=== PATIENT | female | born 1965 | race Caucasian/White ===

== ENCOUNTER → 2017-02-25 | Outpatient (CLI) | payer BC ==
--- NOTE | 2017-02-26 13:58 | Diagnostic Imaging Report ---
Bilateral screening mammogram 2D views with tomosynthesis. The current study was also evaluated with a Computer Aided Detection (CAD) system. INDICATION: Screening. No current complaints stated on the questionnaire. COMPARISON: 08/05/15. FINDINGS: The breasts are composed of scattered fibroglandular densities. Occasional benign-appearing calcifications are seen. Allowing for technique and positional differences, no suspicious change is seen. IMPRESSION: No significant change. ACR BI-RADS Category 2: Benign findings. Result letter will be mailed to the patient. Note: At least 10% of breast cancer is not imaged by mammography. Dictated on workstation # [id number]
== END ==
LOC: RAD 15:33
PROVIDERS: ATTEND Obstetrics & Gynecology
DX: Z12.31 Encounter for screening mammogram for malignant neoplasm of breast (principal)
CPT/HCPCS: 77067

== ENCOUNTER → 2018-03-21 | Outpatient (CLI) | payer BC ==
--- NOTE | 2018-03-22 12:50 | Diagnostic Imaging Report ---
INDICATION: Routine screening. COMPARISON: 02/25/2017 and 08/05/2015. TECHNIQUE: 2D and 3D bilateral screening mammography was performed with CAD. FINDINGS: Scattered fibroglandular densities are identified bilaterally. The parenchymal pattern is stable. No mass or malignant-appearing microcalcifications are seen. The axillae are unremarkable. IMPRESSION: No mammographic features suspicious for malignancy are identified. ACR BI-RADS Category 1: Negative. Result letter will be mailed to the patient. Note: At least 10% of breast cancer is not imaged by mammography. Dictated by: Dictated on workstation # [id number]
== END ==
LOC: RAD 15:35
PROVIDERS: ATTEND Obstetrics & Gynecology
DX: Z12.31 Encounter for screening mammogram for malignant neoplasm of breast (principal)
CPT/HCPCS: 77067

== ENCOUNTER 2018-11-25 20:38 | Inpatient (IN) | payer BC ==
[~2018-11-25] VITALS: Ht 157.5 cm; Wt 75.6 kg
[~2018-11-25 20:38] MED LIST: NITROGLYCERIN 0.4 MG SL TABS BTL 25'S SL ONE
[2018-11-25] MEDS ORDERED: ASPIRIN 81 MG CHEW (CHILDREN'S ASA) ONE ×2 (20:39→20:40)
--- NOTE | 2018-11-25 20:40 | NUR ---
pt here with " daughter". pt alert gcs 15. dr in ing pt same time. pt c/o chest pain off and on mostly with erertion x 2-3 weeks. pt denies chest pain during dr exam. pt appears quite anxious. pt denies dyspnea and no acute sighns of dyspnea noted. pt denies abd pain relates nausea earlier today none now. denies v/d. pt took 1 chewable asa and motrin automatic clipper here. pt relates 15 min automatic clipper here pain was " intense". pain is at left breast area. i applied tele shows sr 61 ? 1 degree block lungs equal cta bilaterally. abd soft nondistendd neg pain with palpation. pt instructed to call utilization management nurse light if pain comes back. done giselle pt at 2051.
--- NOTE | 2018-11-25 20:43 | NUR ---
someone doing ekg
--- OUTSIDE RECORDS SUMMARY | 2018-11-25 20:43 | XMS REPORT | Continuity of Care Document ---
Author Organization Unknown Address Unknown Phone Unavailable Allergies There is no data. Medications There is no data. Problems Date Dx Coded Attending Type Code Diagnosis Diagnosed By 08/15/2015 JIM ALLISON MD, Ot Z12.31 ENCNTR SCREEN MAMMOGRAM FOR MALIGNANT NE 02/24/2017 JIM ALLISON MD, Ot Z12.31 ENCNTR SCREEN MAMMOGRAM FOR MALIGNANT NE 03/10/2017 JIM ALLISON MD, Ot Z12.31 ENCNTR SCREEN MAMMOGRAM FOR MALIGNANT NE 03/15/2018 JIM ALLISON MD, Ot Z12.31 ENCNTR SCREEN MAMMOGRAM FOR MALIGNANT NE 03/15/2018 JIM ALLISON MD, Ot Z12.31 ENCNTR SCREEN MAMMOGRAM FOR MALIGNANT NE 03/16/2018 JIM ALLISON MD, Ot Z12.31 ENCNTR SCREEN MAMMOGRAM FOR MALIGNANT NE 03/16/2018 JIM ALLISON MD, Ot Z12.31 ENCNTR SCREEN MAMMOGRAM FOR MALIGNANT NE 03/21/2018 JIM ALLISON MD, Ot Z12.31 ENCNTR SCREEN MAMMOGRAM FOR MALIGNANT NE 03/21/2018 JIM ALLISON MD, Ot Z12.31 ENCNTR SCREEN MAMMOGRAM FOR MALIGNANT NE Procedures There is no data. Results There is no data. Encounters ACCT No. Visit Date/Time Discharge Status Pt. Type Provider Facility Loc./Unit Complaint [id number] 03/21/2018 15:35:00 03/21/2018 23:59:59 CLS Outpatient JIM ALLISON MD [facility] RAD SCREENING [id number] 02/25/2017 15:33:00 02/25/2017 23:59:59 CLS Outpatient JIM ALLISON MD [facility] RAD ROUTINE [id number] 08/05/2015 07:27:00 08/05/2015 23:59:59 CLS Outpatient ESTEFANY VAZQUEZ, JIM Reynaga [facility] RAD SCREENING
--- NOTE | 2018-11-25 20:46 | NUR ---
someone gave pt 3 baby asa per v/o dr. sandres also relates no nitro till pt has chest pain again.
--- NOTE | 2018-11-25 20:48 | NUR ---
labs to lab by me
--- NOTE | 2018-11-25 20:51 | ED Chest Pain ---
General Stated Complaint: CHEST PAIN Source: patient, family (daughter) Exam Limitations: no limitations History of Present Illness Date Seen by Provider: Nov 25, 2018 Time Seen by Provider: 20:38 Initial Comments The patient presents to the ER by private conveyance with her daughter chief complaint she's been experiencing some exertional chest pain under her left breast that gets better with rest for the pertinent past 2 weeks. The patient has been jogging about 2-3 times a week and 2 weeks ago she only got about a quarter of her usual distance when she started experiencing the pain and it would not go away until she had rested. Earlier today however she was just walking on her lunch break and that's when the pain started. Since noon she's been having the chest pain even while at rest and it comes and goes. She remarks it is a 8-9 out of 10 at worst and a bout of 5-6 of pain when she arrived. She says the pain was resolving as she was sitting in the bed during her workup. She has no history of coronary disease, hypertension, hypothyroidism, smoking, diabetes or any skin familial medical history. She says she only sees Dr. Braswell and does not see a primary care doctor. No cough shortness of breath nausea sweats pain radiating to her shoulder arm or jaw or syncope. No palpitations or flutters. Allergies and Home Medications Allergies Coded Allergies: sulfamethoxazole (Verified Allergy, Unknown, 11/25/18) trimethoprim (Verified Allergy, Unknown, 11/25/18) Patient Home Medication List Home Medication List Reviewed: Yes Review of Systems Review of Systems Constitutional: No chills, No diaphoresis EENTM: No Blurred Vision, No Double Vision Respiratory: Denies Cough, Denies Shortness of Air Cardiovascular: See HPI, Chest Pain; Denies Edema, Denies Irregular Heart Rate, Denies Lightheadedness, Denies Palpitations, Denies Syncope Gastrointestinal: Denies Abdomen Distended, Denies Abdominal Pain Genitourinary: Denies Burning, Denies Discharge Musculoskeletal: No back pain, No joint pain Skin: No pruritus, No rash Psychiatric/Neurological: Denies Headache, Denies Numbness Past Lszwoca-Nefvkl-Uenabz Hx Patient Social History Alcohol Use: Denies Use Recreational Drug Use: No Smoking Status: Never a Smoker 2nd Hand Smoke Exposure: No Recent Foreign Travel: No Contact w/Someone Who Travel: No Physical Exam Vital Signs Vital Signs - First Documented 11/25/18 20:40 Temp 99.1 Pulse 60 Resp 16 B/P (MAP) 148/85 (106) Pulse Ox 100 O2 Delivery Room Air Capillary Refill : Height, Weight, BMI Height: '" Weight: lbs. oz. kg; BMI Method: General Appearance: No Apparent Distress, WD/WN HEENT: PERRL/EOMI, Pharynx Normal, Moist Mucous Membranes Neck: Full Range of Motion, Normal Inspection Respiratory: Chest Non Tender, Lungs Clear, Normal Breath Sounds, No Accessory Muscle Use, No Respiratory Distress Cardiovascular: Regular Rate, Rhythm, No Edema Gastrointestinal: Normal Bowel Sounds, Non Tender, Soft Extremity: Normal Capillary Refill, Normal Inspection, No Pedal Edema Neurologic/Psychiatric: Alert, Oriented x3 Skin: Normal Color, Warm/Dry Progress/Results/Core Measures Results/Orders Lab Results Laboratory Tests Test 11/25/18 20:45 Range/Units White Blood Count 7.5 4.3-11.0 10^3/uL Red Blood Count 4.91 4.35-5.85 10^6/uL Hemoglobin 13.7 11.5-16.0 G/DL Hematocrit 41 35-52 % Mean Corpuscular Volume 84 80-99 FL Mean Corpuscular Hemoglobin 28 25-34 PG Mean Corpuscular Hemoglobin Concent 33 32-36 G/DL Red Cell Distribution Width 13.5 10.0-14.5 % Platelet Count 252 130-400 10^3/uL Mean Platelet Volume 10.9 H 7.4-10.4 FL Neutrophils (%) (Auto) 60 42-75 % Lymphocytes (%) (Auto) 29 12-44 % Monocytes (%) (Auto) 9 0-12 % Eosinophils (%) (Auto) 2 0-10 % Basophils (%) (Auto) 0 0-10 % Neutrophils # (Auto) 4.5 1.8-7.8 X 10^3 Lymphocytes # (Auto) 2.1 1.0-4.0 X 10^3 Monocytes # (Auto) 0.7 0.0-1.0 X 10^3 Eosinophils # (Auto) 0.2 0.0-0.3 10^3/uL Basophils # (Auto) 0.0 0.0-0.1 10^3/uL Prothrombin Time 12.6 12.2-14.7 SEC INR Comment 0.9 0.8-1.4 Activated Partial Thromboplast Time 24 24-35 SEC Sodium Level 143 135-145 MMOL/L Potassium Level 3.7 3.6-5.0 MMOL/L Chloride Level 104 98-107 MMOL/L Carbon Dioxide Level 27 21-32 MMOL/L Anion Gap 12 5-14 MMOL/L Blood Urea Nitrogen 13 7-18 MG/DL Creatinine 1.19 0.60-1.30 MG/DL Estimat Glomerular Filtration Rate 47 BUN/Creatinine Ratio 11 Glucose Level 108 H 70-105 MG/DL Calcium Level 9.9 8.5-10.1 MG/DL Corrected Calcium 9.7 8.5-10.1 MG/DL Magnesium Level 2.3 1.8-2.4 MG/DL Total Bilirubin 0.4 0.1-1.0 MG/DL Aspartate Amino Transf (AST/SGOT) 20 5-34 U/L Alanine Aminotransferase (ALT/SGPT) 12 0-55 U/L Alkaline Phosphatase 84 40-136 U/L Myoglobin 50.1 10.0-92.0 NG/ML Troponin I 0.144 H <0.028 NG/ML Total Protein 7.0 6.4-8.2 GM/DL Albumin 4.3 3.2-4.5 GM/DL Lipase 33 8-78 U/L My Orders Orders - IESHA DEUTSCH Continuous Ekg Monitoring (11/25/18 20:39) Ekg Tracing (11/25/18 20:39) Nitroglycerin 0.4 Mg Btl 25's (Nitrostat (11/25/18 20:38) Aspirin Chewable Tablet (Baby Aspirin Ch (11/25/18 20:39) Aspirin Chewable Tablet (Baby Aspirin Ch (11/25/18 20:40) Cbc With Automated Diff (11/25/18 20:51) Magnesium (11/25/18 20:51) Chest 1 View, Ap/Pa Only (11/25/18 20:51) Cardiac Profile 1 (11/25/18 20:51) Comprehensive Metabolic Panel (11/25/18 20:51) Myoglobin Serum (11/25/18 20:51) Protime With Inr (11/25/18 20:51) Partial Thromboplastin Time (11/25/18 20:51) O2 (11/25/18 20:51) Monitor-Rhythm Ecg Trace Only (11/25/18 20:51) Lipid Panel (11/26/18 06:00) Ed Iv/Invasive Line Start (11/25/18 20:51) Lipase (11/25/18 20:51) Nitroglycerin 0.4 Mg Btl 25's (Nitrostat (11/25/18 21:00) Aspirin Chewable Tablet (Baby Aspirin Ch (11/25/18 21:00) Ekg Tracing (11/25/18 21:15) Enoxaparin Injection (Lovenox Injection) (11/25/18 21:45) Clopidogrel Tablet (Plavix Tablet) (11/25/18 21:45) Medications Given in ED Current Medications Medications Dose Ordered Sig/Babak Route Start Time Stop Time Status Last Admin Dose Admin Aspirin 234 mg ONCE ONCE PO 11/25/18 21:00 11/25/18 21:01 DC 11/25/18 20:46 234 MG Vital Signs/I&O 11/25/18 20:40 Temp 99.1 Pulse 60 Resp 16 B/P (MAP) 148/85 (106) Pulse Ox 100 O2 Delivery Room Air Progress Progress Note : Time: 21:00 Progress Note Heart score 3 points if the troponin is negative. Her story is moderately suspicious and her lack of risk factors are not reassuring since she does not see a primary care doctor routinely. Initial ECG Impression Date: Nov 25, 2018 Initial ECG Impression Time: 20:40 Initial ECG Rate: 58 Initial ECG Rhythm: Normal Sinus Initial ECG Intervals: Normal Initial ECG Impression: Normal, Nonspecific Changes Initial ECG Comparisson: No Previous ECG Available Comment Patient has some mild half a block elevation of the ST segment in the anterior lead V1, V2 and V3 but no clinically significant ST elevation or depression. EKG : EKG Time: 21:20 Rate: 54 Rhythm: Normal Sinus Intervals: Normal ECG Comparisson: Unchanged ECG Impression: Normal Comment About one half block elevation in the ST segment in V1 but no longer care or V3. No acute ST elevation WA. Normal sinus rhythm. Diagnostic Imaging Diagonstic Imaging: Xray Plain Films/CT/US/NM/MRI: chest (1v) Comments NAME: JUNAID COFFEY [facility] REC#: [id number] PT STATUS: REG ER : 1965 PHYSICIAN: IESHA DEUTSCH MD ADMIT DATE: 11/25/18/ER Draft Date of Exam:11/25/18 CHEST 1 VIEW, AP/PA ONLY EXAMINATION: Chest radiograph, portable AP view. DATE: November 25, 2018 at 2131 hours. INDICATION: 53-year-old female, chest pain. COMPARISON: None. FINDINGS: Heart size and mediastinal contours are unremarkable. There is no identified pneumothorax. There is no large pleural effusion. There is no identified focal airspace consolidation. IMPRESSION: No identified acute cardiopulmonary abnormality. Dictated on workstation # [id number] Dict: 11/25/182140 Trans: 11/25/182143 [facility] [id number] Interpreted by: GABE COMBS MD Electronically signed by: Reviewed: Reviewed by Me Departure Communication (Admissions) Time/Spoke to Admitting Phy: 21:45 Discussed the case lab EKG with Dr. Sy and she agrees to admit the patient. Time/Spoke to Consulting Phy: 21:30 Discussed the case with Dr. Joseph and he agrees to take the patient on consult and would like aspirin 25 mg, Plavix 300 mg, Lovenox weight-based dosing now and hold the morning. Nothing by mouth at midnight and plan to possibly catheter in the morning. Impression Primary Impression: NSTEMI (non-ST elevated myocardial infarction) Disposition: ADMITTED INPATIENT Condition: Stable Admissions Decision to Admit Reason: Admit from ER (General) Decision to Admit/Date: Nov 25, 2018 Time/Decision to Admit Time: 21:29 Departure-Patient Inst. Referrals: NO,LOCAL PHYSICIAN (PCP/Family) Primary Care Physician IESHA DEUTSCH Nov 25, 2018 20:51
[2018-11-25 21:00] LABS: BASOPHILS % (AUTO) 0 % (0-10); EOSINOPHILS # (AUTO) 0.2 10^3/uL (0.0-0.3); EOSINOPHILS % (AUTO) 2 % (0-10); HEMATOCRIT 41 % (35-52); HEMOGLOBIN 13.7 G/DL (11.5-16.0); LYMPHOCYTES # (AUTO) 2.1 X 10^3 (1.0-4.0); LYMPHOCYTES % (AUTO) 29 % (12-44); MEAN CORPUSCULAR HEMOGLOBIN 28 PG (25-34); MEAN CORPUSCULAR HGB CONC 33 G/DL (32-36); MEAN CORPUSCULAR VOLUME 84 FL (80-99); MEAN PLATELET VOLUME 10.9 FL (7.4-10.4); MONOCYTES # (AUTO) 0.7 X 10^3 (0.0-1.0); MONOCYTES % (AUTO) 9 % (0-12); NEUTROPHILS # (AUTO) 4.5 X 10^3 (1.8-7.8); NEUTROPHILS % (AUTO) 60 % (42-75); PLATELET COUNT 252 10^3/uL (130-400); RED CELL DISTRIBUTION WIDTH 13.5 % (10.0-14.5); WHITE BLOOD COUNT 7.5 10^3/uL (4.3-11.0)
[2018-11-25] MEDS ORDERED: ASPIRIN 81 MG CHEW (CHILDREN'S ASA) PO ONE (21:00)
[2018-11-25] MEDS ORDERED: NITROGLYCERIN 0.4 MG SL TABS BTL 25'S SL PRN ×2 (21:00→23:00)
[2018-11-25 21:05] LABS: INR 0.9 (0.8-1.4); PROTHROMBIN TIME PATIENT 12.6 SEC (12.2-14.7)
[2018-11-25 21:12] LABS: ALBUMIN 4.3 GM/DL (3.2-4.5); BILIRUBIN,TOTAL 0.4 MG/DL (0.1-1.0); CALCIUM 9.9 MG/DL (8.5-10.1); CREATININE SERUM 1.19 MG/DL (0.60-1.30); MAGNESIUM 2.3 MG/DL (1.8-2.4); POTASSIUM 3.7 MMOL/L (3.6-5.0)
--- NOTE | 2018-11-25 21:20 | NUR ---
pt remains alert gcs 15. daughter remains in the room. pt appears less anxious. pt denies chest and abd pain. denies nausea and no v/d noted in er visit thus far. denies dyspnea and no acute sighns of dyspnea noted. pt told again call if if pain comes back. 2nd ekg in progress. tele shows sr 61. bp machibe is 123/71 ausc hr 60 reg ausc resp 16 normal recheck temp 99.3 p ox r/a is 97.
--- NOTE | 2018-11-25 21:44 | Diagnostic Imaging Report ---
EXAMINATION: Chest radiograph, portable AP view. DATE: November 25, 2018 at 2131 hours. INDICATION: 53-year-old female, chest pain. COMPARISON: None. FINDINGS: Heart size and mediastinal contours are unremarkable. There is no identified pneumothorax. There is no large pleural effusion. There is no identified focal airspace consolidation. IMPRESSION: No identified acute cardiopulmonary abnormality. Dictated by: Dictated on workstation # [id number]
[2018-11-25] MEDS ORDERED: CLOPIDOGREL 300 MG (PLAVIX) TABLET PO ONE (21:45)
[2018-11-25] MEDS ORDERED: ENOXAPARIN 80 MG/0.8 ML (LOVENOX) SYR SC ONE (21:45)
--- NOTE | 2018-11-25 21:45 | NUR ---
pt remains alert gcs 15. daughter remains in the room. dr in room talking withpt. pt denies chest pain and dyspnea and no acute sighns of dyspnea noted. tele shows sr 64.bp machine is 162/86 ausc hr 64 reg ausc resp 20 normal recheck temp 99.5 p ox r/a is 98.
--- NOTE | 2018-11-25 22:00 | NUR ---
i just called report to admit nurse eufemia. she will call when she is ready for the pt.
--- NOTE | 2018-11-25 22:14 | NUR ---
admit nurse called and ready for pt. i am taking pt to admit room now by cart. tele continues to floor. family with.
[2018-11-25 22:27] VITALS: BP 123/69
[2018-11-25 22:30] VITALS: BP 125/70
--- NOTE | 2018-11-25 22:30 | NUR ---
Pt c/o chest pressure of 1/10. Pt refused nitro and morphine.
[2018-11-25 22:40] VITALS: BP 129/69
[2018-11-25 22:45] VITALS: BP 104/57
[2018-11-25 23:00] VITALS: BP 96/56
[2018-11-25] MEDS ORDERED: ONDANSETRON 4 MG/2 ML (SDV) Z0FRAN IV PRN (23:00)
[2018-11-25] MEDS ORDERED: CATHETER FLUSH 10 ML SYR IV PRN (23:00)
[2018-11-25 23:15] VITALS: BP 102/69
[2018-11-26] VITALS (21 sets, daily range): BP systolic 90–118; BP diastolic 43–71
[2018-11-26 04:21] LABS: BASOPHILS % (AUTO) 0 % (0-10); EOSINOPHILS # (AUTO) 0.2 10^3/uL (0.0-0.3); EOSINOPHILS % (AUTO) 4 % (0-10); HEMATOCRIT 40 % (35-52); HEMOGLOBIN 13.2 G/DL (11.5-16.0); LYMPHOCYTES # (AUTO) 1.9 X 10^3 (1.0-4.0); LYMPHOCYTES % (AUTO) 36 % (12-44); MEAN CORPUSCULAR HEMOGLOBIN 28 PG (25-34); MEAN CORPUSCULAR HGB CONC 33 G/DL (32-36); MEAN CORPUSCULAR VOLUME 84 FL (80-99); MEAN PLATELET VOLUME 10.2 FL (7.4-10.4); MONOCYTES # (AUTO) 0.4 X 10^3 (0.0-1.0); MONOCYTES % (AUTO) 8 % (0-12); NEUTROPHILS # (AUTO) 2.8 X 10^3 (1.8-7.8); NEUTROPHILS % (AUTO) 52 % (42-75); PLATELET COUNT 224 10^3/uL (130-400); RED CELL DISTRIBUTION WIDTH 13.5 % (10.0-14.5); WHITE BLOOD COUNT 5.4 10^3/uL (4.3-11.0)
[2018-11-26 04:38] LABS: ALANINE AMINOTRANSFERASE 12 U/L (0-55); ALBUMIN 3.9 GM/DL (3.2-4.5); ALKALINE PHOSPHATASE 75 U/L (40-136); BILIRUBIN,TOTAL 0.4 MG/DL (0.1-1.0); BUN/CREATININE RATIO 13; CALCIUM 9.5 MG/DL (8.5-10.1); CARBON DIOXIDE 25 MMOL/L (21-32); CHLORIDE 107 MMOL/L (98-107); CHOLESTEROL 169 MG/DL (< 200); GFR ESTIMATED > 60; GLUCOSE 85 MG/DL (70-105); HDL CHOLESTEROL 65 MG/DL (40-60); POTASSIUM 3.8 MMOL/L (3.6-5.0); SODIUM 143 MMOL/L (135-145); TOTAL PROTEIN 6.3 GM/DL (6.4-8.2); TRIGLYCERIDES 63 MG/DL (<150); VLDL CHOLESTEROL 13 MG/DL (5-40)
[2018-11-26] MEDS: CATHETER FLUSH 10 ML SYR IV SCH ×3 (07:22→22:20)
[2018-11-26] MEDS ORDERED: NS IV 1000 ML 1,000 ML ONE ×2 (08:59→11:18)
[2018-11-26] MEDS ORDERED: CLOPIDOGREL 75 MG (PLAVIX) TABLET PO SCH (09:00)
[2018-11-26] MEDS ORDERED: ASPIRIN E.C. 81 MG (ECOTRIN) TAB PO SCH (09:00)
[2018-11-26] MEDS ORDERED: lisINopril 5 MG (PRINIVIL) TABLET PO SCH (09:00)
--- NOTE | 2018-11-26 09:10 | Cardiac Procedure Note-CS/ASA ---
Pre-Procedure Note Pre-Op Procedure Note H&P Reviewed The H&P was reviewed, patient examined and no changes noted. Date H&P Reviewed: Nov 26, 2018 Time H&P Reviewed: 09:10 Conscious Sedation Pre-Proced Time 09:10 ASA Score 3 For ASA 3 and 4: Consider anesthesia and medical clearance. Also, for patients with a history of failed moderate sedation consider anesthesia. Airway Lungs Heart ASA score ASA 1: a normal healthy patient ASA 2: a patient with a mild systemic disease (mid diabetes, controlled hypertension, obesity x ASA 3: a patient with a severe systemic disease that limits activity (angina, COPD, prior Myocardial infarction) ASA 4: a patient with an incapacitating disease that is a constant threat to life (CHF, renal failure) ASA 5: a moribund patient not expected to survive 24 hrs. (ruptured aneurysm) ASA 6: a declared brain- patient whose organs are being harvested. For emergent operations, add the letter E after the classification Mallampati Classification Grade 3 Sedation Plan Analgesia, Amnesia, Plan communicated to team members, Discussed options with patient/fam, Discussed risks with patient/fam The patient is an appropriate candidate to undergo the planned procedure, sedation, and anesthesia. The patient immediately re-assessed prior to indication. KATRIN CARTER MD Nov 26, 2018 09:10
--- NOTE | 2018-11-26 09:10 | Consultation-Cardiology ---
HPI-Cardiology Cardiology Consultation Date of Consultation 11/26/18 Date of Admission Time Seen by Provider: 09:05 Indication: chest pain HPI 53 years old lady with no significant past history, has been trying to exercise to lose weight. Started to experience chest pain with exertion over the past 2 weeks, reporting worsening chest pain with exertion that her exercise ability b ecame worse, continue to deteriorate until yesterday when she had significant chest pain with exertion and then she progressed to having chest pain at rest, came into the emergency room, reporting improvement in her chest pain. She was noted to have troponin elevation. Overnight did not have any further episode of chest pain, no shortness of breath, no palpitation, no syncope or near syncopal episodes. No claudications. Home Medications & Allergies Allergies: Coded Allergies: sulfamethoxazole (Verified Allergy, Unknown, 11/25/18) trimethoprim (Verified Allergy, Unknown, 11/25/18) Home Medication List Reviewed: Yes YOB-Pdzxcn-Bkhibr Hx Patient Social History Marital Status: Employed/Student: employed Alcohol Use: Denies Use Recreational Drug Use: No Smoking Status: Never a Smoker 2nd Hand Smoke Exposure: No Recent Foreign Travel: No Recent Infectious Disease Expo: No Past Medical History menopause Family Medical History Family Medical Hx uncle has history of heart disease Review of Systems-General Review of Systems Constitutional: see HPI; No chills, No diaphoresis EENTM: see HPI, no symptoms reported Respiratory: see HPI; No cough, No dyspnea on exertion, No hemoptysis, No orthopnea, No phlegm, No short of breath, No stridor, No wheezing, No other Cardiovascular: see HPI, chest pain; No edema, No Hx of Intervention, No palpi tations, No syncope, No vascular heart diseas, No other Gastrointestinal: no symptoms reported, see HPI Genitourinary: no symptoms reported, see HPI Musculoskeletal: see HPI; No back pain, No joint pain Skin: see HPI; No pruritus, No rash Psychiatric/Neurological: See HPI; Denies Headache, Denies Numbness Reviewed Test Results Reviewed Test Results Lab Laboratory Tests Test 11/25/18 20:45 11/26/18 04:11 Range/Units White Blood Count 7.5 5.4 4.3-11.0 10^3/uL Red Blood Count 4.91 4.69 4.35-5.85 10^6/uL Hemoglobin 13.7 13.2 11.5-16.0 G/DL Hematocrit 41 40 35-52 % Mean Corpuscular Volume 84 84 80-99 FL Mean Corpuscular Hemoglobin 28 28 25-34 PG Mean Corpuscular Hemoglobin Concent 33 33 32-36 G/DL Red Cell Distribution Width 13.5 13.5 10.0-14.5 % Platelet Count 252 224 130-400 10^3/uL Mean Platelet Volume 10.9 H 10.2 7.4-10.4 FL Neutrophils (%) (Auto) 60 52 42-75 % Lymphocytes (%) (Auto) 29 36 12-44 % Monocytes (%) (Auto) 9 8 0-12 % Eosinophils (%) (Auto) 2 4 0-10 % Basophils (%) (Auto) 0 0 0-10 % Neutrophils # (Auto) 4.5 2.8 1.8-7.8 X 10^3 Lymphocytes # (Auto) 2.1 1.9 1.0-4.0 X 10^3 Monocytes # (Auto) 0.7 0.4 0.0-1.0 X 10^3 Eosinophils # (Auto) 0.2 0.2 0.0-0.3 10^3/uL Basophils # (Auto) 0.0 0.0 0.0-0.1 10^3/uL Prothrombin Time 12.6 12.2-14.7 SEC INR Comment 0.9 0.8-1.4 Activated Partial Thromboplast Time 24 24-35 SEC Sodium Level 143 143 135-145 MMOL/L Potassium Level 3.7 3.8 3.6-5.0 MMOL/L Chloride Level 104 107 98-107 MMOL/L Carbon Dioxide Level 27 25 21-32 MMOL/L Anion Gap 12 11 5-14 MMOL/L Blood Urea Nitrogen 13 12 7-18 MG/DL Creatinine 1.19 0.90 0.60-1.30 MG/DL Estimat Glomerular Filtration Rate 47 > 60 BUN/Creatinine Ratio 11 13 Glucose Level 108 H 85 70-105 MG/DL Calcium Level 9.9 9.5 8.5-10.1 MG/DL Corrected Calcium 9.7 9.6 8.5-10.1 MG/DL Magnesium Level 2.3 1.8-2.4 MG/DL Total Bilirubin 0.4 0.4 0.1-1.0 MG/DL Aspartate Amino Transf (AST/SGOT) 20 22 5-34 U/L Alanine Aminotransferase (ALT/SGPT) 12 12 0-55 U/L Alkaline Phosphatase 84 75 40-136 U/L Myoglobin 50.1 10.0-92.0 NG/ML Troponin I 0.144 H 0.925 *H <0.028 NG/ML Total Protein 7.0 6.3 L 6.4-8.2 GM/DL Albumin 4.3 3.9 3.2-4.5 GM/DL Lipase 33 8-78 U/L Triglycerides Level 63 <150 MG/DL Cholesterol Level 169 < 200 MG/DL LDL Cholesterol Direct 100 1-129 MG/DL VLDL Cholesterol 13 5-40 MG/DL HDL Cholesterol 65 H 40-60 MG/DL Physical Exam Physical Exam Vital Signs Vital Signs - First Documented 11/25/18 11/25/18 20:40 22:40 Temp 99.1 Pulse 60 Resp 16 B/P (MAP) 148/85 (106) Pulse Ox 100 O2 Delivery Room Air O2 Flow Rate 0.00 Capillary Refill : Less Than 3 Seconds Height, Weight, BMI Height: 5'2.00" Weight: 160lbs. 3.0oz. 72.027061db; 29.3 BMI Method:Stated General Appearance: No Apparent Distress, WD/WN HEENT: PERRL/EOMI, Pharynx Normal, Moist Mucous Membranes Neck: Full Range of Motion, Normal Inspection Respiratory: Chest Non Tender, Lungs Clear, Normal Breath Sounds, No Accessory Muscle Use, No Respiratory Distress Cardiovascular: Regular Rate, Rhythm, No Edema Gastrointestinal: Normal Bowel Sounds, Non Tender, Soft Extremity: Normal Capillary Refill, Normal Inspection, No Pedal Edema Neurologic/Psychiatric: Alert, Oriented x3 Skin: Normal Color, Warm/Dry A/P-Cardiology Admission Diagnosis Non-ST elevation of cardiac infarction Coronary artery disease Sinus node dysfunction Chest pain Assessment/Plan Non-ST elevation myocardial infarction, patient is chest pain-free at this time, continue to have increase in troponin, discussed the management plan recommended cardiac catheterization. Coronary artery disease, planning to proceed with cardiac catheterization Sinus node dysfunction, sinus bradycardia, asymptomatic. Monitor. Cannot tolerate beta blockers. Menopause, maintained on hormone replacement therapy. Family history of heart disease Clinical Quality Measures DVT/VTE Risk/Contraindication: Risk Factor Score Per Nursin RFS Level Per Nursing on Admit: 4+=Very High KATRIN CARTER MD Nov 26, 2018 09:10
[2018-11-26] MEDS ORDERED: HEParin (CATH LAB) 2,000 ML IV ONE (09:30)
[2018-11-26] MEDS ORDERED: LIDOCAINE 1% INJ 20 ML 20 ML VIAL ONE (09:30)
[2018-11-26] MEDS ORDERED: MIDAZOLAM 5 MG/5 ML (VERSED) VIAL ONE (09:54)
[2018-11-26] MEDS ORDERED: fentaNYL INJECTION 100 MCG/2 ML AMP ONE (09:54)
--- NOTE | 2018-11-26 10:30 | Short Stay Summary-Hospitalist ---
History of Present Illness HPI/Chief Complaint Pt is a 53yo female on hormone replacement therapy who presented to the ER for exertional chest pain. She states her symptoms started 2-3 weeks ago. She normally jogs 2-3 times a week and she is not able to maintain a normal distance chest pain. She's also developed dyspnea on exertion. Yesterday she developed chest pain that was severe at rest. She denies a history of previous symptoms. It improved in route to the ER but without any medications. She was found to have a mildly elevated troponin and was admitted for an NSTEMI. Source: patient Date Seen 11/26/18 Time Seen by a Provider: 10:25 Attending Physician Verona Sy MD PCP No,Local Physician Referring Physician Date of Admission Nov 25, 2018 at 9:25 pm Home Medications & Allergies Home Medications Reviewed patient Home Medication Reconciliation performed by pharmacy medication reconciliations facilities operations technician and/or nursing. Patients Allergies have been reviewed. Allergies Allergies Coded Allergies shellfish derived (Unverified Allergy, Severe, Anaphylaxis, 11/26/18) sulfamethoxazole (Verified Allergy, Unknown, 11/25/18) trimethoprim (Verified Allergy, Unknown, 11/25/18) Uncoded Allergies iv contrast ( Allergy, Severe, anaphylaxis, 11/26/18) anaphylaxis, angioedema Past Vvascys-Hzvzdp-Lbjklw Hx Past Med/Social Hx: Reviewed Nursing Past Med/Soc Hx Patient Social History Marrital Status: Employed/Student: employed Alcohol Use: Denies Use Recreational Drug Use: No Smoking Status: Never a Smoker 2nd Hand Smoke Exposure: No Recent Foreign Travel: No Contact w/other who traveled: No Recent Infectious Disease Expo: No Past Medical History : No Menopausal (on hormone replacemnt therapy) Family History Reviewed Nursing Family Hx mom- VTE Brother- RA Review of Systems Constitutional: no symptoms reported Respiratory: dyspnea on exertion, short of breath Cardiovascular: chest pain; No edema, No Hx of Intervention; palpitations; No syncope Gastrointestinal: no symptoms reported, nausea Genitourinary: no symptoms reported Musculoskeletal: no symptoms reported Skin: no symptoms reported Psychiatric/Neurological: No Symptoms Reported Physical Exam Physical Exam Vital Signs Vital Signs - First Documented 11/25/18 11/25/18 11/26/18 20:40 22:40 12:00 Temp 99.1 Pulse 60 Resp 16 B/P (MAP) 148/85 (106) Pulse Ox 100 O2 Delivery Room Air O2 Flow Rate 0.00 FiO2 60 Capillary Refill : Less Than 3 Seconds Height, Weight, BMI Height: 5'2.00" Weight: 160lbs. 3.0oz. 72.747869vu; 29.3 BMI Method:Stated General Appearance: No Apparent Distress, WD/WN HEENT: PERRL/EOMI, Moist Mucous Membranes; No Scleral Icterus (L), No Scleral Icterus (R) Neck: Normal Inspection, Supple; No Thyromegaly Respiratory: Lungs Clear, No Accessory Muscle Use, No Respiratory Distress Cardiovascular: Regular Rate, Rhythm, No Edema, No Murmur Gastrointestinal: Normal Bowel Sounds, Non Tender, Soft Extremity: Normal Capillary Refill, Normal Inspection, No Calf Tenderness, No Pedal Edema Neurologic/Psychiatric: Alert, Oriented x3, Normal Mood/Affect; No Aphasia, No Facial Droop Skin: Normal Color, Warm/Dry Results Results/Procedures Labs Laboratory Tests 11/25/18 20:45 11/26/18 04:11 11/27/18 03:36 Patient resulted labs reviewed. Imaging: Reviewed Imaging Report Short Stay Diagnosis Discharge Diagnosis-Short Stay Admission Diagnosis NSTEMI Final Discharge Diagnosis NSTEMI Conclusion Plan NSTEMI troponin elevated and trended up this AM Cardiology consulted Received ASA, Plavix in ER Cardiac Cath today Clinical Quality Measures DVT/VTE Risk/Contraindication: Risk Factor Score Per Nursin RFS Level Per Nursing on Admit: 4+=Very High VERONA SY MD Nov 26, 2018 10:30 am
[2018-11-26] MEDS ORDERED: EPTIFIBATIDE BOLUS 20 ML IV ONE (10:47)
[2018-11-26] MEDS ORDERED: HEParin 1000 UNIT/ML (10ML VIAL) FOR BOLUS ONE (10:47)
[2018-11-26] MEDS ORDERED: niCARdipine 25 MG/10 ML (CARDENE) AMP IV ONE (10:48)
[2018-11-26] MEDS ORDERED: NS (IVPB) 0 ML ONE (10:48)
[2018-11-26] MEDS ORDERED: NITRO DRIP 25000 MCG/D5W 250 ML IV ONE (10:48)
[2018-11-26] MEDS ORDERED: diphenhydrAMINE 50 MG/ML INJ (BENADRYL) ONE (11:13)
[2018-11-26] MEDS ORDERED: methylPREDNISolone 125 MG (Solu-MEDROL) VIAL ONE (11:14)
[2018-11-26] MEDS ORDERED: DOPamine DRIP 250 ML IV ONE (11:15)
[2018-11-26] MEDS ORDERED: EPINEPHrine 0.1 MG/ML 10 ML (HOSPIRA) SYR ONE (11:27)
[2018-11-26] MEDS ORDERED: FAMOTIDINE 20MG/2ML IV (PEPCID) ONE (11:33)
[2018-11-26] MEDS ORDERED: CLOPIDOGREL 300 MG (PLAVIX) TABLET PO ONE ×2 (11:45→12:39)
[2018-11-26] MEDS ORDERED: EPINEPHrine 1 MG INJECTION 2 MG in NS (IVPB) 248 ML IV SCH (11:45)
[2018-11-26] MEDS ORDERED: diphenhydrAMINE 50 MG/ML INJ (BENADRYL) IVP PRN (11:45)
[2018-11-26] MEDS ORDERED: PATIENT MAY USE OWN MEDS, ALL PO SCH (11:45)
[2018-11-26] MEDS ORDERED: ASPIRIN 325 MG (5 GR) TABLET ONE ×2 (11:45→12:38)
--- NOTE | 2018-11-26 12:05 | NUR ---
Pt to room via bed from phlebotomist lab assistant. Dr. Joseph and Dr. cordoba at bedside. Staff preparing to intubate pt. Timeline note below. 1206-pt bagged by phlebotomist lab assistant and anesthesia. 1207-2 mg versed given by anesthesia. 1208-20 mg Etomidate given by anesthesia 1205- 50 mg succinylcholine given by anesthesia 1210- 1st intubation attempt failed, pt bagged. 1212- Intubation attempt successful with 6.0 ETT and color change on C02 detector. 1215-OG tube placed and placement verified, pt hooked up to LIWS. 1223- pt waking up, 2 mg versed given at this time by phlebotomist lab assistant RN.
--- NOTE | 2018-11-26 12:06 | History & Physical-Hospitalist ---
History of Present Illness HPI/Chief Complaint Pt is a 53yo female on hormone replacement therapy who presented to the ER for exertional chest pain. She states her symptoms started 2-3 weeks ago. She normally jogs 2-3 times a week and she is not able to maintain a normal distance chest pain. She's also developed dyspnea on exertion. Yesterday she developed chest pain that was severe at rest. She denies a history of previous symptoms. It improved in route to the ER but without any medications. She was found to have a mildly elevated troponin and was admitted for an NSTEMI. Date Seen 11/26/18 Time Seen by a Provider: 11:59 Attending Physician Verona Sy MD PCP No,Local Physician Referring Physician Date of Admission Nov 25, 2018 at 9:25 pm Home Medications & Allergies Home Medications Reviewed patient Home Medication Reconciliation performed by pharmacy medication reconciliations infectious waste technician and/or nursing. Patients Allergies have been reviewed. Allergies Allergies Coded Allergies shellfish derived (Unverified Allergy, Severe, Anaphylaxis, 11/26/18) sulfamethoxazole (Verified Allergy, Unknown, 11/25/18) trimethoprim (Verified Allergy, Unknown, 11/25/18) Uncoded Allergies iv contrast ( Allergy, Severe, 11/26/18) anaphylaxis, angioedema Past Srxvpry-Dfgzlh-Gfujzq Hx Past Med/Social Hx: Reviewed Nursing Past Med/Soc Hx Patient Social History Marrital Status: Employed/Student: employed Alcohol Use: Denies Use Recreational Drug Use: No Smoking Status: Never a Smoker 2nd Hand Smoke Exposure: No Recent Foreign Travel: No Contact w/other who traveled: No Recent Infectious Disease Expo: No Past Medical History : No Menopausal (on hormone replacemnt therapy) Family History Reviewed Nursing Family Hx mom- VTE Brother- RA Review of Systems Constitutional: No chills, No fever EENTM: No blurred vision, No double vision, No nose congestion, No throat pain Respiratory: dyspnea on exertion, short of breath Cardiovascular: chest pain; No edema, No Hx of Intervention, No palpitations, No vascular heart diseas Gastrointestinal: No abdominal pain, No constipation, No diarrhea, No nausea, No vomiting Genitourinary: No dysuria, No frequency Musculoskeletal: No joint pain, No muscle pain Skin: No lesions, No rash Psychiatric/Neurological: Denies Headache, Denies Numbness, Denies Tingling Physical Exam Physical Exam Vital Signs Vital Signs - First Documented 11/25/18 11/25/18 20:40 22:40 Temp 99.1 Pulse 60 Resp 16 B/P (MAP) 148/85 (106) Pulse Ox 100 O2 Delivery Room Air O2 Flow Rate 0.00 Capillary Refill : Less Than 3 Seconds Height, Weight, BMI Height: 5'2.00" Weight: 160lbs. 3.0oz. 72.988870vd; 29.3 BMI Method:Stated General Appearance: No Apparent Distress, WD/WN Eyes: Right Eye Normal Inspection, Right Eye PERRL HEENT: PERRL/EOMI, Normal ENT Inspection, Moist Mucous Membranes; No Scleral Icterus (L), No Scleral Icterus (R) Neck: Normal Inspection, Non Tender Respiratory: Lungs Clear, No Respiratory Distress Cardiovascular: Regular Rate, Rhythm, No Edema, No JVD, No Murmur, Normal Peripheral Pulses Gastrointestinal: Normal Bowel Sounds, No Organomegaly, No Pulsatile Mass, Non Tender, Soft Back: Normal Inspection, No CVA Tenderness Extremity: Normal Inspection, Non Tender, No Calf Tenderness, No Pedal Edema Neurologic/Psychiatric: Alert, Oriented x3, Normal Mood/Affect; No Aphasia, No Facial Droop Skin: Normal Color, Warm/Dry Lymphatic: No Adenopathy Results Results/Procedures Labs Laboratory Tests 11/25/18 20:45 11/26/18 04:11 Patient resulted labs reviewed. Imaging: Reviewed Imaging Report Assessment/Plan Admission Diagnosis NSTEMI Admission Status: Inpatient Order (span 2 midnights) Reason for Inpatient Admission: See below Assessment and Plan NSTEMI troponin elevated and trended up this AM Cardiology consulted Received ASA, Plavix in ER Cardiac Cath revealed RCA lesion with stent deployment Anaphylactic Shock Had undisclosed shellfish allergy Reacted to contrast in laborer tin can Became hypotensive with angioedema Received Epi and Epi gtt started Dopamine gtt Steroids given, Benadryl ordered, famotidine ordered Acute Respiratory Failure Pulm consulted, appreciate recs Plan to intubate due to angioedema by Anesthesia Diagnosis/Problems Diagnosis/Problems (1) NSTEMI (non-ST elevated myocardial infarction) Status: Acute (2) Anaphylactic shock as adv eff correct medicin substanc proper administ Qualifiers: Encounter type: initial encounter Qualified Codes: T88.6XXA - Anaphylactic reaction due to adverse effect of correct drug or medicament properly administered, initial encounter (3) Acute respiratory failure Status: Acute Clinical Quality Measures DVT/VTE Risk/Contraindication: Risk Factor Score Per Nursin RFS Level Per Nursing on Admit: 4+=Very High VERONA SY MD Nov 26, 2018 12:06 pm
[2018-11-26] MEDS ORDERED: PROPOFOL DRIP (ICU) 100 ML IV ONE ×2 (12:18→20:07)
--- NOTE | 2018-11-26 12:37 | Diagnostic Imaging Report ---
INDICATION: Intubation. COMPARISON: 11/25/2018. FINDINGS: ET tube has tip 3 cm above the guillermo. Enteric tube courses into the stomach and off the [id number]. Visualized lungs are clear. No pleural effusion or pneumothorax. Normal cardiomediastinal silhouette. IMPRESSION: Well-positioned ET and enteric tubes. Dictated by: Dictated on workstation # [id number]
--- NOTE | 2018-11-26 12:48 | Pulmonary Consultation ---
History of Present Illness History of Present Illness Date of Consultation 11/26/18 12:24 Time Seen by Provider: 12:24 Date of Admission Reason for Visit: chest pain History of Present Illness 53yo presented to ED secondary to worsening CP and SOB. Dr. Joseph took pt for urgent heart cath and place stent in LAD. During heart cath pt developed anaphylaxis and angioedema. I arrived and pt was SOB, complaining of sore mouth, dysphagia. Pt transferred back to ICU and was intubated withh size 6.0 ET tube. Allergies and Home Medications Allergies Coded Allergies: shellfish derived (Unverified Allergy, Severe, Anaphylaxis, 11/26/18) sulfamethoxazole (Verified Allergy, Unknown, 11/25/18) trimethoprim (Verified Allergy, Unknown, 11/25/18) Uncoded Allergies: iv contrast (Allergy, Severe, 11/26/18) anaphylaxis, angioedema Past Bewgwhy-Xbjfuq-Xeghnu Hx Past Med/Social Hx: Reviewed Nursing Past Med/Soc Hx Patient Social History Alcohol Use: Denies Use Recreational Drug Use: No Smoking Status: Never a Smoker 2nd Hand Smoke Exposure: No Recent Foreign Travel: No Contact w/Someone Who Travel: No Recent Infectious Disease Expo: No Physical Abuse: No Sexual Abuse: No 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 3.0oz. 72.841305gs; 29.3 BMI Method:Stated Exam Exam Vital Signs Date Time Temp Pulse Resp B/P (MAP) Pulse Ox O2 Delivery O2 Flow Rate FiO2 11/26/18 09:00 98 Room Air 0.00 11/26/18 08:00 97.7 11/26/18 08:00 Room Air 11/26/18 07:00 50 11/26/18 04:00 97.8 54 16 106/62 (77) 98 Room Air 11/26/18 04:00 Room Air 11/26/18 03:58 51 106/62 (77) 97 Room Air 11/26/18 01:00 48 11/26/18 01:00 47 101/56 (71) 96 Room Air 11/26/18 00:00 46 104/65 (78) 97 Room Air 11/26/18 00:00 98.1 11/26/18 00:00 98 Room Air 11/25/18 23:15 47 102/69 (80) 99 Room Air 11/25/18 23:00 55 96/56 (69) 98 Room Air 11/25/18 22:45 56 104/57 (73) 98 Room Air 11/25/18 22:40 98.9 58 16 129/69 98 Room Air 0.00 11/25/18 22:30 53 125/70 (88) 99 Room Air 11/25/18 22:27 98.9 11/25/18 22:27 58 11/25/18 22:27 58 123/69 (87) 99 Room Air 11/25/18 22:01 99.5 64 20 162/86 (111) 98 Room Air 11/25/18 20:40 99.1 60 16 148/85 (106) 100 Room Air I & O 11/26/18 06:59 Intake Total 600 ml Output Total 1600 ml Balance -1000 ml Height & Weight Height: 5'2.00" Weight: 160lbs. 3.0oz. 72.940438ne; 29.3 BMI Method:Stated Results Lab Laboratory Tests 11/25/18 20:45 11/26/18 04:11 Assessment/Plan Assessment/Plan Acute respiratory failure secondary to anaphylactic reaction -Intubation -Solumedrol -BenadrylIsabell JASON M DO Nov 26, 2018 12:47
[2018-11-26] MEDS: NS IV 1000 ML 1,000 ML IV SCH ×2 (12:54→15:13)
[2018-11-26] MEDS: EPINEPHrine 1 MG INJECTION 2 MG in NS (IVPB) 248 ML IV SCH ×4 (12:58→20:29)
--- NOTE | 2018-11-26 13:05 | Anesthesia-Procedure Note ---
Procedures/Interventions Procedure Start/Stop/Diagnosis Date of Procedure: Nov 26, 2018 Start Time: 11:45 Stop Time: 12:20 Intubation RSI: Yes 100% pre-Ox, [id number]: Yes Intubation Method: orotracheal Videoscope used: Yes Grade View: 1 Medications: Etomidate, Succinylcholine, Versed Mask Ventilation: positive Positive End Tide CO2: Yes Breath Sounds after Intubation: bilateral-equal ETT Securred @ (cm): 21 Intubated with ease: No Intubation Complications: no complications Care turned over to: ESTUARDO Rose CRNA Nov 26, 2018 13:05
[2018-11-26] MEDS ORDERED: ATROPINE INJECTION 1 MG/10 ML SYR (ABBOTT) ONE (13:25)
[2018-11-26] MEDS: DEXMEDETOMIDINE INJECTION 200 MCG in NS (IVPB) 50 ML IV SCH ×4 (14:40→22:18)
[2018-11-26] MEDS: RT-ALBUTEROL/IPRATROPIUM 3 ML (DUONEB) VIAL INH SCH ×3 (14:41→22:09)
[2018-11-26 14:46] LABS: ABG OXYGEN SATURATION 99 % (94-100); ABG PCO2 44 MMHG (35-45); ABG PO2 227 MMHG (79-93); ABG TCO2 18.6 MMOL/L (21.0-31.0)
[2018-11-26 14:48] LABS: ABG PH 7.22 (7.37-7.43); ALLENS TEST YES-POS
[2018-11-26 14:49] LABS: INSPIRED O2 60%; PATIENT TEMP 98.9; VENTILATOR YES
--- NOTE | 2018-11-26 14:54 | NUR ---
RT Renita increased Rate to [address] Cortes's request
[2018-11-26] MEDS: methylPREDNISolone 125 MG (Solu-MEDROL) VIAL IVP SCH ×2 (17:51→17:52)
--- NOTE | 2018-11-26 19:35 | NUR ---
This RN called dyehouse worker TAN Alatorre to notify that pt has epi gtt running peripherally in 20G IV in her right AC. cereal supervisor stated doctors were aware and that "Dr. Louise said it was okay" and to check the IV site frequently.
[2018-11-26] MEDS: ATORVASTATIN 40 MG (LIPITOR) TABLET PO SCH (21:26)
[2018-11-26] MEDS: inSUlin ASPART (NovoLOG) 1 UNIT/0.01 ML (CHARGE PER UNIT) SQ SCH (21:26)
[2018-11-26] MEDS: FAMOTIDINE 20MG/2ML IV (PEPCID) IVP SCH (21:26)
[2018-11-27] VITALS (30 sets, daily range): BP systolic 94–163; BP diastolic 56–93
[2018-11-27] MEDS: inSUlin ASPART (NovoLOG) 1 UNIT/0.01 ML (CHARGE PER UNIT) SQ SCH ×4 (00:03→17:50)
[2018-11-27] MEDS: methylPREDNISolone 125 MG (Solu-MEDROL) VIAL IVP SCH (00:03)
[2018-11-27] MEDS: NS IV 1000 ML 1,000 ML IV SCH ×5 (00:03→09:17)
[2018-11-27] MEDS: DEXMEDETOMIDINE INJECTION 200 MCG in NS (IVPB) 50 ML IV SCH ×5 (00:16→08:15)
[2018-11-27] MEDS: EPINEPHrine 1 MG INJECTION 2 MG in NS (IVPB) 248 ML IV SCH ×4 (02:00→16:58)
[2018-11-27] MEDS: RT-ALBUTEROL/IPRATROPIUM 3 ML (DUONEB) VIAL INH SCH ×6 (02:21→22:23)
[2018-11-27 04:02] LABS: ABG BASE EXCESS -17.3 MMOL/L (-2.5-2.5); ABG OXYGEN SATURATION 95 % (94-100); ABG PCO2 32 MMHG (35-45); ABG PO2 85 MMHG (79-93)
[2018-11-27 04:04] LABS: ABG PH 7.12 (7.37-7.43); ALLENS TEST POSITIVE; INSPIRED O2 22%; PATIENT TEMP 99.5; VENTILATOR YES
[2018-11-27 04:12] LABS: BASOPHILS % (AUTO) 0 % (0-10); EOSINOPHILS % (AUTO) 0 % (0-10); HEMATOCRIT 34 % (35-52); HEMOGLOBIN 12.3 G/DL (11.5-16.0); LYMPHOCYTES # (AUTO) 0.5 X 10^3 (1.0-4.0); LYMPHOCYTES % (AUTO) 3 % (12-44); MEAN CORPUSCULAR HEMOGLOBIN 32 PG (25-34); MEAN CORPUSCULAR HGB CONC 36 G/DL (32-36); MEAN CORPUSCULAR VOLUME 88 FL (80-99); MEAN PLATELET VOLUME 11.7 FL (7.4-10.4); MONOCYTES # (AUTO) 0.4 X 10^3 (0.0-1.0); MONOCYTES % (AUTO) 2 % (0-12); NEUTROPHILS # (AUTO) 14.3 X 10^3 (1.8-7.8); NEUTROPHILS % (AUTO) 95 % (42-75); PLATELET COUNT 264 10^3/uL (130-400); RED CELL DISTRIBUTION WIDTH 13.5 % (10.0-14.5); WHITE BLOOD COUNT 15.1 10^3/uL (4.3-11.0)
--- NOTE | 2018-11-27 04:15 | NUR ---
This RN spoke to AZEB Reynolds. New orders received at this time for central line placement. Notified Dr. Louise and Dr. Cortes, Dr. Cortes coming in to place central line.
[2018-11-27 04:32] LABS: ALKALINE PHOSPHATASE 49 U/L (40-136); BILIRUBIN,TOTAL 0.4 MG/DL (0.1-1.0); BUN/CREATININE RATIO 9; CALCIUM 6.4 MG/DL (8.5-10.1); CHLORIDE 108 MMOL/L (98-107); CREATININE SERUM 0.77 MG/DL (0.60-1.30); GFR ESTIMATED > 60; GLUCOSE 177 MG/DL (70-105); MAGNESIUM 2.6 MG/DL (1.8-2.4); POTASSIUM 3.6 MMOL/L (3.6-5.0); SODIUM 129 MMOL/L (135-145); TOTAL PROTEIN 7.4 GM/DL (6.4-8.2)
[2018-11-27 04:39] LABS: CARBON DIOXIDE 6 MMOL/L (21-32); PHOSPHORUS 0.7 MG/DL (2.3-4.7)
[2018-11-27] MEDS ORDERED: NOREPINEPHRINE 4 MG/4 ML (LEVOPHED) AMP IV ONE (04:49)
[2018-11-27] MEDS ORDERED: NS (IVPB) 250 ML ONE (04:49)
[2018-11-27] MEDS ORDERED: SODIUM BICARB 8.4% 50 MEQ/50 ML VIAL ONE ×3 (04:59→05:01)
[2018-11-27] MEDS ORDERED: D5 1/2 NS 1000 ML IV SOLUTION 1,000 ML IV ONE (05:00)
[2018-11-27 05:06] LABS: ALANINE AMINOTRANSFERASE < 30 U/L (0-55)
[2018-11-27] MEDS ORDERED: NOREPINEPHRINE 4 MG/NS 250 ML DRIP IV SCH ×2 (05:15)
[2018-11-27] MEDS ORDERED: SODIUM PHOSPHATE INJ 15 MM in D5W 100 ML IVPB 100 ML IV ONE (05:30)
[2018-11-27] MEDS ORDERED: SODIUM BICARB 8.4% 50 MEQ/50 ML VIAL IV ONE (05:30)
[2018-11-27] MEDS ORDERED: SODIUM BICARBONATE 8.4% VIAL 100 MEQ in 1/2 NS IV SOLUTION 1,000 ML IV ONE (05:30)
[2018-11-27 05:36] LABS: LYMPHOCYTES % (MANUAL) 3 %; NEUTROPHILS % (MANUAL) 97 %
[2018-11-27] MEDS ORDERED: NS IV ONE (06:00)
[2018-11-27] MEDS ORDERED: POTASSIUM PHOSPHATE IV ONE (06:00)
[2018-11-27] MEDS ORDERED: EPINEPHrine INJECTION 1 MG/ML AMP ONE (06:16)
[2018-11-27] MEDS: MAGNESIUM 1 GM/100 ML IVPB 100 ML IV SCH ×5 (06:26→20:12)
[2018-11-27] MEDS: KCL 20 MEQ TAB (K-DUR) PO SCH (06:26)
[2018-11-27] MEDS: POTASSIUM CL 10MEQ/50ML IVPB 50 ML IV SCH ×13 (06:26→20:48)
[2018-11-27] MEDS ORDERED: CALCIUM GLUCONATE 10% INJ 4.65 MEQ in NS (IVPB) 50 ML IV ONE (06:30)
[2018-11-27] MEDS ORDERED: NS IV 1000 ML 2,000 ML ONE (06:35)
[2018-11-27] MEDS ORDERED: NS (IVPB) 50 ML ONE (06:36)
[2018-11-27] MEDS ORDERED: CALCIUM GLUC. 10% 4.65 MEQ/10 ML VIAL ONE (06:36)
[2018-11-27 06:42] LABS: ABG BASE EXCESS -12.5 MMOL/L (-2.5-2.5); ABG OXYGEN SATURATION 95 % (94-100); ABG PCO2 33 MMHG (35-45); ABG PO2 74 MMHG (79-93); ABG TCO2 14.1 MMOL/L (21.0-31.0); ALLENS TEST POSITIVE; INSPIRED O2 21%; PATIENT TEMP 100.8; VENTILATOR YES
[2018-11-27 06:43] LABS: ABG PH 7.24 (7.37-7.43)
--- NOTE | 2018-11-27 06:55 | Pulmonary Progress Note ---
Subjective Time Seen by a Provider: 05:00 Subjective/Events-last exam PT is sedated on vent. Daughter at bedside. All questions answered Sepsis Event Evaluation Height, Weight, BMI Height: 5'2.00" Weight: 160lbs. 3.0oz. 72.025762ov; 29.3 BMI Method:Stated Focused Exam Lactate Level 11/27/18 05:10: Lactic Acid Level 9.21*H Lactic Acid Level Laboratory Tests Test 11/27/18 05:10 Lactic Acid Level 9.21 MMOL/L (0.50-2.00) *H Exam Exam Vital Signs Date Time Temp Pulse Resp B/P (MAP) Pulse Ox O2 Delivery O2 Flow Rate FiO2 11/27/18 06:21 112 27 95 21 11/27/18 06:05 136/71 11/27/18 06:00 115 20 136/71 (92) 98 Mechanical Ventilator 21.00 11/27/18 05:00 123 25 123/61 (81) 97 Mechanical Ventilator 21.00 11/27/18 04:00 124 21 94/59 (71) 96 Mechanical Ventilator 21.00 11/27/18 03:38 99.7 11/27/18 03:00 112 22 104/56 (72) 97 Mechanical Ventilator 21.00 11/27/18 02:21 111 23 97 21 11/27/18 02:00 109 22 108/58 (75) 96 Mechanical Ventilator 21.00 11/27/18 01:59 102/58 11/27/18 01:00 111 11/27/18 01:00 111 23 106/63 (77) 96 Mechanical Ventilator 21.00 11/27/18 00:00 Mechanical Ventilator 21 11/27/18 00:00 98.3 11/27/18 00:00 97 Mechanical Ventilator 21 11/27/18 00:00 110 22 116/64 (81) 96 Mechanical Ventilator 21.00 11/26/18 23:00 109 22 104/59 (74) 96 Mechanical Ventilator 21.00 11/26/18 22:23 101 22 97 21 11/26/18 22:00 101 19 109/68 (82) 97 Mechanical Ventilator 21.00 11/26/18 21:27 110/71 11/26/18 21:00 97 Mechanical Ventilator 21 11/26/18 21:00 95 20 113/65 (81) 97 Mechanical Ventilator 21.00 11/26/18 20:00 Mechanical Ventilator 21 11/26/18 20:00 95 18 97/61 (73) 97 Mechanical Ventilator 21.00 11/26/18 20:00 98.8 11/26/18 19:00 96 18 98/71 (80) 97 Mechanical Ventilator 21.00 11/26/18 19:00 97 11/26/18 18:25 80 23 98 21 11/26/18 18:00 80 17 107/70 (82) 98 Mechanical Ventilator 21.00 11/26/18 17:00 95 19 100/63 (75) 96 Mechanical Ventilator 21.00 11/26/18 16:00 106/62 (77) Mechanical Ventilator 21.00 11/26/18 16:00 Mechanical Ventilator 21 11/26/18 15:47 88 20 99 30 11/26/18 15:00 115/63 (80) Mechanical Ventilator 30.00 11/26/18 14:42 87 16 100 60 11/26/18 14:00 111 12 103/59 (74) 100 Mechanical Ventilator 100.00 11/26/18 13:00 46 15 90/43 (59) 100 Mechanical Ventilator 100.00 11/26/18 13:00 46 11/26/18 12:59 46 11/26/18 12:15 108 13 108/71 (83) 100 Mechanical Ventilator 100.00 11/26/18 12:12 121 18 100 100 11/26/18 12:00 Mechanical Ventilator 60 11/26/18 09:00 98 Room Air 0.00 11/26/18 08:00 97.7 11/26/18 08:00 Room Air 11/26/18 07:00 50 I & O 11/27/18 07:00 Intake Total 1960 ml Output Total 2375 ml Balance -415 ml Height & Weight Height: 5'2.00" Weight: 160lbs. 3.0oz. 72.347523ve; 29.3 BMI Method:Stated General Appearance: Other (Sedated on vent) HEENT: PERRL/EOMI, Other (ET tube in place) Neck: Normal Inspection, Non Tender, Supple Respiratory: Normal Breath Sounds, No Accessory Muscle Use, No Respiratory Distress Cardiovascular: Regular Rate, Rhythm, No Edema, No Gallop Capillary Refill: Less Than 3 Seconds Gastrointestinal: normal bowel sounds, non tender, soft Extremity: Normal Capillary Refill, Normal Inspection, No Pedal Edema Neurologic/Psychiatric: Alert, Oriented x3 Skin: Normal Color, Warm/Dry Lymphatic: No Adenopathy Results Lab Laboratory Tests 11/25/18 20:45 11/26/18 04:11 11/27/18 03:36 Assessment/Plan Assessment/Plan Acute respiratory failure secondary to anaphylactic reaction -Continue vent. Not ready to wean yet -Solumedrol -Benadryl, Pepcid Hypotension secondary to cardiogenic shock vs septic shock -Check gallardo cultures -Check echocardiogram -Titrate Levophed down as tolerated -Central line placed this AM. Check CVP monitoring -Start Vanco, Zosyn -Check TSH, T3,T4 -Give 30ml/kg of IVF Metabolic lactic acidosis secondary to hypotension r/o sepsis -3 amps of bicarb push give this AM -Change to bicarb gtt with 1/2 NS and 3 amps of bicarb at 150 -Repeat ABG 1hr after bicarb push Leukocytosis secondary to solumedrol r/o infection Hypokalemia, hypophos, hypocalcemia -replace and recheck Hyponatremia -Monitor RONY JAMES DO Nov 27, 2018 06:55
[2018-11-27 07:13] LABS: FREE T4 (FREE THYROXINE) 0.99 NG/DL (0.70-1.48)
[2018-11-27] MEDS: CATHETER FLUSH 10 ML SYR IV SCH ×3 (07:17→23:00)
[2018-11-27 07:28] LABS: BILIRUBIN,URINE NEGATIVE (NEGATIVE); CLARITY,URINE CLEAR; COLOR,URINE YELLOW; GLUCOSE, URINE (UA) NEGATIVE (NEGATIVE); KETONES,URINE 1+ (NEGATIVE); LEUKOCYTE ESTERASE ,URINE NEGATIVE (NEGATIVE); NITRITE,URINE NEGATIVE (NEGATIVE); PH,URINE 5 (5-9); PROTEIN,URINE 1+ (NEGATIVE); UROBILINOGEN,URINE NORMAL (NORMAL)
[2018-11-27] MEDS: ACETAMINOPHEN 500 MG TAB (TYLENOL) PO PRN (07:29)
[2018-11-27] MEDS ORDERED: PIPERACILLIN/TAZOBACTAM (BULK) 4.5 GM in NS (IVPB) 100 ML IV NR (07:30)
[2018-11-27] MEDS ORDERED: SODIUM PHOSPHATE INJ 45 MM in NS (IVPB) 250 ML IV NR (07:45)
[2018-11-27 07:53] LABS: RBC,URINE RARE /HPF
[2018-11-27 07:54] LABS: BACTERIA,URINE MODERATE /HPF; WBC,URINE 0-2 /HPF
[2018-11-27 07:55] LABS: AMORPHOUS SEDIMENT,UR MOD AMOR URATES /LPF
--- NOTE | 2018-11-27 07:55 | Diagnostic Imaging Report ---
INDICATION: Ventilator dependent. COMPARISON with 11/26/2018. FINDINGS: ET tube and NG tube remain present unchanged in position. The lungs are well-aerated. No infiltrate. Heart is not enlarged. No pulmonary edema. No pneumothorax or pleural effusion. IMPRESSION: Stable portable chest with tubes and lines in good position. Dictated by: Dictated on workstation # [id number]
[2018-11-27] MEDS ORDERED: VANCOMYCIN INJECTION 1,500 MG in NS IV 500 ML 500 ML IV NR (08:00)
--- NOTE | 2018-11-27 08:03 | Diagnostic Imaging Report ---
INDICATION: Central line placement. Comparison with previous exam at 3:45 a.m. ET tube and NG tube remain in good position. Right jugular line is now present. Tip is at the cavoatrial junction. The lungs are well-aerated and clear. No pneumothorax or pleural effusion. Heart is not enlarged. IMPRESSION: Satisfactory IJ line placement on the right since previous exam. Dictated by: Dictated on workstation # [id number]
--- NOTE | 2018-11-27 08:05 | Pulmonary Procedures ---
Pulmonary Procedures Date of Procedure Date of Service: Nov 27, 2018 Lumen: triple (US guided. US used to visulalize needle entering IJ. ) Central Line Procedure: betadine prep, sterile drapes applied, sterile dressing applied Position: internal jugular (R) Anesthesia: Lidocaine Volume Anesthetic (ccs): 3 Complications: none Post Position: sutured, good blood return, position confirmed w/ CXR RONY JAMES DO Nov 27, 2018 08:05
[2018-11-27] MEDS: CLOPIDOGREL 75 MG (PLAVIX) TABLET PO SCH (09:09)
[2018-11-27] MEDS: ASPIRIN E.C. 81 MG (ECOTRIN) TAB PO SCH (09:10)
[2018-11-27] MEDS: FAMOTIDINE 20MG/2ML IV (PEPCID) IVP SCH ×2 (09:10→20:12)
--- NOTE | 2018-11-27 09:57 | Cardiology Progress Note ---
Subjective Date Seen by Provider: Nov 27, 2018 Time Seen by Provider: 09:53 Subjective/Events-last exam patient is sedated and intubated. Blood pressure is better, discussed the management plan with the family, had a long discussion about her condition, answered all questions Review of Systems General: Other (sedated and intubated, unable to provide review of systems) Focused Exam Lactate Level 11/27/18 05:10: Lactic Acid Level 9.21*H 11/27/18 07:10: Lactic Acid Level 9.87*H Lactic Acid Level Laboratory Tests Test 11/27/18 07:10 Lactic Acid Level 9.87 MMOL/L (0.50-2.00) *H Objective-Cardiology Exam Last Set of Vital Signs Vital Signs 11/27/18 11/27/18 11/27/18 08:25 08:56 09:00 Temp 100.0 Pulse 83 Resp 25 B/P (MAP) 108/56 (73) Pulse Ox 97 O2 Delivery Mechanical Ventilator O2 Flow Rate 21.00 FiO2 21 Capillary Refill : Less Than 3 Seconds I&O Intake and Output 11/27/18 00:00 Intake Total 1154 ml Output Total 3800 ml Balance -2646 ml Intake Oral 600 ml IV Total 554 ml Output Urine Total 3800 ml General: Severe Distress, Other (sedated and intubated) HEENT: Atraumatic Neck: No JVD, No Thyromegaly Lungs: Clear to Auscultation, Normal Air Movement Heart: Regular Rate, Normal S1, Normal S2, No Murmurs Abdomen: Normal Bowel Sounds, Soft, No Hepatosplenomegaly, No Masses Extremities: No Clubbing, No Cyanosis, No Edema, Normal Pulses, No Tenderness/Swelling Skin: No Rashes, No Breakdown, No Significant Lesion Neuro: Other (sedated and intubated) Psych/Mental Status: Other (sedated and intubated) Results Lab Laboratory Tests 11/27/18 03:36 A/P-Cardiology Admission Diagnosis Non-ST elevation of cardiac infarction Coronary artery disease Sinus node dysfunction Chest pain Assessment/Plan Non-ST elevation myocardial infarction, status post cardiac catheterization showing subtotal occlusion of the right coronary artery, successful stenting to the right coronary artery using 4.0 stent in RCA, excellent results. Anaphylactic reaction probably to contrast, patient had hypotensive shock, significant edema. Resulted in intubation and started on epinephrine drip and dopamine drip, blood pressure today is better. Still sedated. Hypotensive shock, stop lisinopril, will avoid the use of ACEI and ARB do to angioedema, although it is unlikely to be the cause of her reaction Metabolic acidosis, lactic acidosis, probably due to hypoperfusion, secondary to hypotensive shock. Electrolytes imbalance, being corrected Sinus node dysfunction with episodes of sinus bradycardia, was asymptomatic prior to the procedure. Currently heart rate is better. Continue to monitor Menopause, maintained on hormone replacement therapy. Family history of heart disease Clinical Quality Measures DVT/VTE Risk/Contraindication: Risk Factor Score Per Nursin RFS Level Per Nursing on Admit: 4+=Very High KATRIN CARTER MD Nov 27, 2018 09:57
[2018-11-27] MEDS: DEXMEDETOMIDINE INJECTION 1,000 MCG in NS (IVPB) 250 ML IV SCH ×2 (10:09→19:13)
[2018-11-27] MEDS ORDERED: EPINEPHrine 0.1 MG/ML 10 ML (HOSPIRA) SYR INJ ONE (10:17)
[2018-11-27] MEDS ORDERED: NS IV 1000 ML 1,000 ML ONE ×2 (10:21→10:46)
--- NOTE | 2018-11-27 10:39 | Progress Note - Hospitalist ---
Subjective HPI/CC On Admission Date Seen by Provider: Nov 27, 2018 Time Seen by Provider: 08:45 Pt is a 53yo female on hormone replacement therapy who presented to the ER for exertional chest pain. She states her symptoms started 2-3 weeks ago. She normally jogs 2-3 times a week and she is not able to maintain a normal distance chest pain. She's also developed dyspnea on exertion. Yesterday she developed chest pain that was severe at rest. She denies a history of previous symptoms. It improved in route to the ER but without any medications. She was found to have a mildly elevated troponin and was admitted for an NSTEMI. Subjective/Events-last exam Pt is intubated and sedated. ROS unable to be obtained. Daughter at bedside. Discussed events from yesterday and all questions answered. Focused Exam Lactate Level 11/27/18 05:10: Lactic Acid Level 9.21*H 11/27/18 07:10: Lactic Acid Level 9.87*H Lactic Acid Level Laboratory Tests Test 11/27/18 07:10 Lactic Acid Level 9.87 MMOL/L (0.50-2.00) *H Objective Exam Vital Signs Vital Signs Date Time Temp Pulse Resp B/P (MAP) Pulse Ox O2 Delivery O2 Flow Rate FiO2 11/27/18 10:17 81 26 98 21 11/27/18 10:00 157/77 (103) Mechanical Ventilator 21.00 11/27/18 08:56 100.0 Capillary Refill : Less Than 3 Seconds General Appearance: WD/WN, Other (Sedated on vent) HEENT: Other (ET tube in place) Neck: Other Respiratory: Rhonci, Other Cardiovascular: Regular Rate, Rhythm, No Murmur Gastrointestinal: Normal Bowel Sounds, Non Tender, Soft Genital/Rectal: Other Extremity: No Calf Tenderness, No Pedal Edema Neurologic/Psychiatric: Other Results/Procedures Lab Laboratory Tests 11/27/18 03:36 Patient resulted labs reviewed. 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 Continue Epi gtt Continue Steroids, Benadryl, famotidine Acute Respiratory Failure Pulm consulted, appreciate recs Discussed with Dr Cortes- attempt to wean tomorrow HAGMA 2/2 lactic acidosis likely from hypoperfusion Continue high volume fluids Bicarb gtt BP improving NSTEMI Cardiology consulted Continue ASA, Plavix Cardiac Cath revealed RCA lesion with stent deployment Echo ordered SIRS No signs of infection but will rule out sepsis Likely due to inflammatory response with anaphylaxis Cultures ordered, Lactic acid elevation due to hypoperfusion Vanc and Zosyn ordered by Dr Cortes Diagnosis/Problems Diagnosis/Problems (1) NSTEMI (non-ST elevated myocardial infarction) Status: Acute (2) Anaphylactic shock as adv eff correct medicin substanc proper administ Status: Acute Qualifiers: Encounter type: initial encounter Qualified Codes: T88.6XXA - Anaphylactic reaction due to adverse effect of correct drug or medicament properly administered, initial encounter (3) Acute respiratory failure Status: Acute (4) Metabolic acidosis Status: Acute (5) Hypophosphatemia Clinical Quality Measures DVT/VTE Risk/Contraindication: Risk Factor Score Per Nursin RFS Level Per Nursing on Admit: 4+=Very High VERONA PASTOR MD Nov 27, 2018 10:39 am
--- NOTE | 2018-11-27 11:21 | Anesthesia-Procedure Note ---
Procedures/Interventions Procedure Start/Stop/Diagnosis Date of Procedure: Nov 27, 2018 Start Time: 10:45 Stop Time: 11:15 Arterial Line Arterial Line Catheter: 20G Type: Radial Location: Right Procedure: prepped, draped in sterile fashion, good wave-form was obtained, patient tolerated procedure well, no immediate complications, post procedure area cleaned, post procedure dressing applied ESTUARDO NAVA CRNA Nov 27, 2018 11:21
--- NOTE | 2018-11-27 11:21 | NUR ---
1050 CONSENT OBTAINED FROM PT'S DAUGHTER PAMELA FOR ART LINE PLACEMENTVIA TELEPHONE BY THIS RN AND Consuelo BROCK RN. ANESTHESIA PLACED ART LINE IN RIGHT RADIAL. AT 1110
[2018-11-27] MEDS: methylPREDNISolone 40 MG/ML (Solu-MEDROL) VIAL IV SCH ×2 (11:42→18:01)
--- NOTE | 2018-11-27 11:42 | NUR ---
VANCOMYCIN DOSING SCR 0.77; CRCL ~ 79; BOLUS VANC 20 MG/KG X 78 KG ~ 1500 MG THEN VANC 15 MG/KG ~ 1 GM Q12H CHECK TROUGH LEVEL 11/29 0800 HOLD DOSE AND CONTACT PHARMACY IF LEVEL IS GREATER THAN 20
[2018-11-27] MEDS: PIPERACILLIN/TAZOBACTAM (BULK) 4.5 GM in NS (IVPB) 100 ML IV SCH ×2 (13:44→20:34)
[2018-11-27] MEDS: [UNRECOGNIZED DRUG - OTHER] IV SCH ×3 (13:55→23:53)
[2018-11-27] MEDS: POTASSIUM CHLORIDE IV SCH ×3 (13:55→23:53)
[2018-11-27] MEDS: SODIUM BICARBONATE IV SCH ×3 (13:55→23:53)
[2018-11-27 14:58] LABS: BASOPHILS % (AUTO) 0 % (0-10); EOSINOPHILS % (AUTO) 0 % (0-10); HEMATOCRIT 33 % (35-52); HEMOGLOBIN 11.2 G/DL (11.5-16.0); LYMPHOCYTES # (AUTO) 0.9 X 10^3 (1.0-4.0); LYMPHOCYTES % (AUTO) 4 % (12-44); MEAN CORPUSCULAR HEMOGLOBIN 28 PG (25-34); MEAN CORPUSCULAR HGB CONC 34 G/DL (32-36); MEAN CORPUSCULAR VOLUME 84 FL (80-99); MEAN PLATELET VOLUME 10.5 FL (7.4-10.4); MONOCYTES # (AUTO) 1.4 X 10^3 (0.0-1.0); MONOCYTES % (AUTO) 7 % (0-12); NEUTROPHILS # (AUTO) 19.3 X 10^3 (1.8-7.8); NEUTROPHILS % (AUTO) 89 % (42-75); PLATELET COUNT 202 10^3/uL (130-400); RED CELL DISTRIBUTION WIDTH 13.8 % (10.0-14.5); WHITE BLOOD COUNT 21.6 10^3/uL (4.3-11.0)
[2018-11-27 15:18] LABS: ALANINE AMINOTRANSFERASE 9 U/L (0-55); ALBUMIN 2.8 GM/DL (3.2-4.5); ALKALINE PHOSPHATASE 49 U/L (40-136); BILIRUBIN,TOTAL 0.3 MG/DL (0.1-1.0); BUN/CREATININE RATIO 8; CALCIUM 6.3 MG/DL (8.5-10.1); CARBON DIOXIDE 17 MMOL/L (21-32); CHLORIDE 117 MMOL/L (98-107); CREATININE SERUM 0.73 MG/DL (0.60-1.30); GFR ESTIMATED > 60; GLUCOSE 205 MG/DL (70-105); SODIUM 145 MMOL/L (135-145); TOTAL PROTEIN 4.5 GM/DL (6.4-8.2)
[2018-11-27 15:27] LABS: MAGNESIUM 0.9 MG/DL (1.8-2.4)
[2018-11-27] MEDS ORDERED: LACTATED RINGERS 1,000 ML IV SCH (15:45)
[2018-11-27] MEDS ORDERED: POTASSIUM PHOSPHATE INJ 30 MM in NS (IVPB) 250 ML IV ONE (15:45)
--- NOTE | 2018-11-27 15:48 | NUR ---
DR JAMES NOTIFIED OF CRITICAL LAB RESULTS, NEW ORDERS RECEIVED SEE ORDER HX.
[2018-11-27 16:42] LABS: ABG BASE EXCESS -4.8 MMOL/L (-2.5-2.5); ABG OXYGEN SATURATION 98 % (94-100); ABG PCO2 26 MMHG (35-45); ABG PH 7.46 (7.37-7.43); ABG PO2 82 MMHG (79-93); ABG TCO2 19.2 MMOL/L (21.0-31.0)
[2018-11-27 16:45] LABS: ALLENS TEST YES-POS
[2018-11-27 16:46] LABS: INSPIRED O2 21%; PATIENT TEMP 98.1; VENTILATOR YES
[2018-11-27 19:19] LABS: ABG BASE EXCESS -3.7 MMOL/L (-2.5-2.5); ABG OXYGEN SATURATION 97 % (94-100); ABG PCO2 31 MMHG (35-45); ABG PH 7.42 (7.37-7.43); ABG PO2 73 MMHG (79-93)
[2018-11-27 19:20] LABS: ALLENS TEST YES-POS; INSPIRED O2 21%
[2018-11-27 19:21] LABS: PATIENT TEMP 98.1; VENTILATOR YES
[2018-11-27] MEDS: ATORVASTATIN 40 MG (LIPITOR) TABLET PO SCH (20:12)
[2018-11-27] MEDS: VANCOMYCIN 1 GM/NS 250 ML IVPB IV SCH ×2 (20:13)
[2018-11-27] MEDS: inSUlin ASPART (NovoLOG) 1 UNIT/0.01 ML (CHARGE PER UNIT) SC SCH (20:13)
[2018-11-27 23:59] LABS: BUN/CREATININE RATIO 7; CALCIUM 6.4 MG/DL (8.5-10.1); CARBON DIOXIDE 19 MMOL/L (21-32); CHLORIDE 113 MMOL/L (98-107); CREATININE SERUM 0.74 MG/DL (0.60-1.30); GFR ESTIMATED > 60; GLUCOSE 157 MG/DL (70-105); MAGNESIUM 2.1 MG/DL (1.8-2.4); POTASSIUM 4.1 MMOL/L (3.6-5.0); SODIUM 145 MMOL/L (135-145)
[2018-11-28] VITALS (25 sets, daily range): BP systolic 91–218; BP diastolic 58–86
[2018-11-28] MEDS: inSUlin ASPART (NovoLOG) 1 UNIT/0.01 ML (CHARGE PER UNIT) SQ SCH ×2 (00:14→05:07)
[2018-11-28] MEDS: methylPREDNISolone 40 MG/ML (Solu-MEDROL) VIAL IV SCH ×5 (00:19→23:54)
[2018-11-28] MEDS: RT-ALBUTEROL/IPRATROPIUM 3 ML (DUONEB) VIAL INH SCH ×7 (02:12→23:17)
[2018-11-28 03:11] LABS: BASOPHILS % (AUTO) 0 % (0-10); EOSINOPHILS % (AUTO) 0 % (0-10); HEMATOCRIT 32 % (35-52); HEMOGLOBIN 10.6 G/DL (11.5-16.0); LYMPHOCYTES # (AUTO) 0.7 X 10^3 (1.0-4.0); LYMPHOCYTES % (AUTO) 4 % (12-44); MEAN CORPUSCULAR HEMOGLOBIN 28 PG (25-34); MEAN CORPUSCULAR HGB CONC 33 G/DL (32-36); MEAN CORPUSCULAR VOLUME 84 FL (80-99); MEAN PLATELET VOLUME 10.4 FL (7.4-10.4); MONOCYTES # (AUTO) 0.8 X 10^3 (0.0-1.0); MONOCYTES % (AUTO) 5 % (0-12); NEUTROPHILS # (AUTO) 14.4 X 10^3 (1.8-7.8); NEUTROPHILS % (AUTO) 91 % (42-75); PLATELET COUNT 171 10^3/uL (130-400); RED CELL DISTRIBUTION WIDTH 14.4 % (10.0-14.5); WHITE BLOOD COUNT 15.9 10^3/uL (4.3-11.0)
[2018-11-28 03:31] LABS: ABG BASE EXCESS -0.1 MMOL/L (-2.5-2.5); ABG OXYGEN SATURATION 96 % (94-100); ABG PCO2 33 MMHG (35-45); ABG PH 7.46 (7.37-7.43); ABG PO2 68 MMHG (79-93); ABG TCO2 24.3 MMOL/L (21.0-31.0); ALLENS TEST POSITIVE; INSPIRED O2 21%; PATIENT TEMP 98.3; VENTILATOR YES
[2018-11-28 03:41] LABS: BUN/CREATININE RATIO 8; CALCIUM 6.4 MG/DL (8.5-10.1); CARBON DIOXIDE 21 MMOL/L (21-32); CHLORIDE 112 MMOL/L (98-107); CREATININE SERUM 0.74 MG/DL (0.60-1.30); GFR ESTIMATED > 60; GLUCOSE 134 MG/DL (70-105); MAGNESIUM 1.9 MG/DL (1.8-2.4); PHOSPHORUS 2.8 MG/DL (2.3-4.7); POTASSIUM 4.2 MMOL/L (3.6-5.0); SODIUM 145 MMOL/L (135-145)
[2018-11-28] MEDS: POTASSIUM CL 10MEQ/50ML IVPB 50 ML IV SCH (03:46)
[2018-11-28] MEDS: MAGNESIUM 1 GM/100 ML IVPB 100 ML IV SCH (03:47)
[2018-11-28] MEDS: KCL 20 MEQ TAB (K-DUR) PO SCH (03:47)
[2018-11-28] MEDS ORDERED: LACTATED RINGERS 1,000 ML IV ONE (04:57)
[2018-11-28] MEDS: LACTATED RINGERS 1,000 ML IV SCH ×4 (05:06→23:55)
[2018-11-28] MEDS: inSUlin ASPART (NovoLOG) 1 UNIT/0.01 ML (CHARGE PER UNIT) SC SCH ×4 (05:07→20:39)
[2018-11-28] MEDS: PIPERACILLIN/TAZOBACTAM (BULK) 4.5 GM in NS (IVPB) 100 ML IV SCH ×3 (05:21→20:37)
--- NOTE | 2018-11-28 05:24 | NUR ---
PER DR JAMES PT EXTUBATED AT THIS TIME. ARTERIAL LINE REMOVED. AND CVP LINE REMOVED PER DR JAMES.
--- NOTE | 2018-11-28 05:25 | Pulmonary Progress Note ---
Subjective Time Seen by a Provider: 05:25 Subjective/Events-last exam PT is awake on vent. Sepsis Event Evaluation Height, Weight, BMI Height: 5'2.00" Weight: 173lbs. 3.0oz. 78.740663ax; 29.3 BMI Method:Stated Focused Exam Lactate Level 11/27/18 14:40: Lactic Acid Level 3.16*H 11/27/18 23:33: Lactic Acid Level 2.91*H 11/28/18 03:00: Lactic Acid Level 2.56*H Lactic Acid Level Laboratory Tests Test 11/28/18 03:00 Lactic Acid Level 2.56 MMOL/L (0.50-2.00) *H Exam Exam Vital Signs Date Time Temp Pulse Resp B/P (MAP) Pulse Ox O2 Delivery O2 Flow Rate FiO2 11/28/18 05:00 64 22 92/77 (82) 98 Mechanical Ventilator 21.00 11/28/18 04:07 98 Mechanical Ventilator 0.00 21 11/28/18 04:00 63 21 95/82 (86) 97 Mechanical Ventilator 21.00 11/28/18 03:00 68 22 97/86 (90) 97 Mechanical Ventilator 21.00 11/28/18 02:12 58 22 98 21 11/28/18 02:00 59 22 102/61 (75) 98 Mechanical Ventilator 21.00 11/28/18 01:00 58 21 107/79 (88) 98 Mechanical Ventilator 21.00 11/28/18 01:00 58 11/28/18 00:29 97.8 11/28/18 00:22 103/76 11/28/18 00:10 98 Mechanical Ventilator 0.00 21 11/28/18 00:00 61 21 105/73 (84) 98 Mechanical Ventilator 21.00 11/27/18 23:00 55 23 105/68 (80) 98 Mechanical Ventilator 21.00 11/27/18 22:23 56 22 98 21 11/27/18 22:00 59 20 102/65 (77) 98 Mechanical Ventilator 21.00 11/27/18 21:00 61 22 110/67 (81) 98 Mechanical Ventilator 21.00 11/27/18 20:00 97.6 11/27/18 20:00 61 22 114/68 (83) 98 Mechanical Ventilator 21.00 11/27/18 20:00 98 Mechanical Ventilator 0.00 21 11/27/18 20:00 98 Mechanical Ventilator 0.00 21 11/27/18 19:15 62 22 98 21 11/27/18 19:00 61 21 107/80 (89) 98 Mechanical Ventilator 21.00 11/27/18 19:00 61 11/27/18 18:00 60 22 104/78 (87) 99 Mechanical Ventilator 21.00 11/27/18 17:20 60 22 99 21 11/27/18 17:09 100.0 61 26 110/81 100 Mechanical Ventilator 0.00 11/27/18 17:00 61 26 110/81 (91) 100 Mechanical Ventilator 21.00 11/27/18 16:05 Mechanical Ventilator 21 11/27/18 16:05 97 Mechanical Ventilator 21 11/27/18 16:00 62 25 113/69 (84) 99 Mechanical Ventilator 21.00 11/27/18 15:00 61 26 124/93 (103) 99 Mechanical Ventilator 21.00 11/27/18 14:26 61 26 99 21 11/27/18 14:00 64 26 127/91 (103) 99 Mechanical Ventilator 21.00 11/27/18 13:00 61 18 120/76 (91) 99 Mechanical Ventilator 21.00 11/27/18 13:00 64 11/27/18 12:30 97 Mechanical Ventilator 21 11/27/18 12:30 Mechanical Ventilator 21 11/27/18 12:00 83 26 118/71 (87) 98 Mechanical Ventilator 21.00 11/27/18 11:20 100.0 77 25 158/79 98 Mechanical Ventilator 0.00 11/27/18 11:00 77 25 158/79 (105) 98 Mechanical Ventilator 21.00 11/27/18 10:17 81 26 98 21 11/27/18 10:00 85 9 157/77 (103) 97 Mechanical Ventilator 21.00 11/27/18 09:00 83 25 108/56 (73) 97 Mechanical Ventilator 21.00 11/27/18 08:56 100.0 11/27/18 08:25 Mechanical Ventilator 21 11/27/18 08:25 97 Mechanical Ventilator 21 11/27/18 08:24 100.0 11/27/18 08:00 101 25 142/73 (96) 97 Mechanical Ventilator 21.00 11/27/18 07:29 100.8 11/27/18 07:00 109 26 151/76 (101) 96 Mechanical Ventilator 21.00 11/27/18 07:00 112 11/27/18 06:30 100.8 11/27/18 06:21 112 27 95 21 11/27/18 06:05 136/71 11/27/18 06:00 115 20 136/71 (92) 98 Mechanical Ventilator 21.00 I & O 11/28/18 07:00 Intake Total 7140 ml Output Total 5400 ml Balance 1740 ml Height & Weight Height: 5'2.00" Weight: 173lbs. 3.0oz. 78.004159md; 29.3 BMI Method:Stated General Appearance: Anxious, Thin, Other (PT is alert on vent) HEENT: PERRL/EOMI, Pharynx Normal Neck: Full Range of Motion, Non Tender, Supple Respiratory: Normal Breath Sounds, No Accessory Muscle Use, No Respiratory Distress Cardiovascular: Regular Rate, Rhythm, No Edema, No Murmur Capillary Refill: Less Than 3 Seconds Gastrointestinal: normal bowel sounds, non tender, soft, no organomegaly Extremity: Normal Capillary Refill, Non Tender, No Pedal Edema Neurologic/Psychiatric: Alert Skin: Normal Color, Warm/Dry Lymphatic: No Adenopathy Results Lab Laboratory Tests 11/27/18 03:36 11/27/18 14:40 11/27/18 23:33 11/28/18 03:00 Assessment/Plan Assessment/Plan Acute respiratory failure secondary to anaphylactic reaction -Will proceed with extubation today. -D/C all sedation. -D/C art line because it is not working. -Solumedrol -Benadryl, Pepcid Hypotension secondary to cardiogenic shock vs septic shock -Check gallardo cultures -epi/pressors are all off = -Continue Vanco, Zosyn for now Metabolic lactic acidosis secondary to hypotension - improving -D/C bicarb gtt -Start LR at 150- until LA is WNL Leukocytosis secondary to solumedrol r/o infection Hypokalemia, hypophos, hypocalcemia -replace and recheck RONY JAMES DO Nov 28, 2018 05:25
[2018-11-28] MEDS: CATHETER FLUSH 10 ML SYR IV SCH ×3 (05:26→20:40)
--- NOTE | 2018-11-28 06:34 | Cardiology Progress Note ---
Subjective Date Seen by Provider: Nov 28, 2018 Time Seen by Provider: 06:32 Subjective/Events-last exam patient is awake, lethargic, extubated earlier this morning. Generalized fatigue. No chest pain. Review of Systems General: No Chills, No Night Sweats; Fatigue, Malaise; No Appetite, No Other HEENT: No Head Aches, No Visual Changes, No Eye Pain, No Ear Pain, No D ysphasia, No Sinus Congestion, No Post Nasal Drip, No Sore Throat, No Other Pulmonary: Dyspnea; No Cough, No Pleuritic Chest Pain, No Other Cardiovascular: No: Chest Pain, Palpitations, Orthopnea, Paroxysmal Noc. Dyspnea, Edema, Lt Headedness, Other Focused Exam Lactate Level 11/27/18 14:40: Lactic Acid Level 3.16*H 11/27/18 23:33: Lactic Acid Level 2.91*H 11/28/18 03:00: Lactic Acid Level 2.56*H Lactic Acid Level Laboratory Tests Test 11/28/18 03:00 Lactic Acid Level 2.56 MMOL/L (0.50-2.00) *H Objective-Cardiology Exam Last Set of Vital Signs Vital Signs 11/28/18 11/28/18 11/28/18 00:29 06:00 06:18 Temp 97.8 Pulse 73 Resp 16 B/P (MAP) 101/60 (74) Pulse Ox 97 O2 Delivery Room Air Capillary Refill : Less Than 3 Seconds I&O Intake and Output 11/28/18 00:00 Intake Total 7716 ml Output Total 4500 ml Balance 3216 ml Intake Oral 0 ml IV Total 7716 ml Output Urine Total 4500 ml General: Alert, Oriented X3, Cooperative, Mild Distress HEENT: Atraumatic Neck: No JVD, No Thyromegaly Lungs: Clear to Auscultation, Normal Air Movement Heart: Regular Rate, Normal S1, Normal S2, No Murmurs Abdomen: Normal Bowel Sounds, Soft, No Hepatosplenomegaly, No Masses Extremities: No Clubbing, No Cyanosis, No Edema, Normal Pulses, No Tenderness/Swelling Skin: No Rashes, No Breakdown, No Significant Lesion Neuro: Normal Speech Psych/Mental Status: Mental Status NL, Mood NL Results Lab Laboratory Tests 11/27/18 14:40 11/27/18 23:33 11/28/18 03:00 A/P-Cardiology Admission Diagnosis Non-ST elevation of cardiac infarction Coronary artery disease Sinus node dysfunction Chest pain Assessment/Plan Non-ST elevation myocardial infarction, status post cardiac catheterization showing subtotal occlusion of the right coronary artery, successful stenting to the right coronary artery using 4.0 stent in RCA, excellent results. Anaphylactic reaction probably to contrast, patient had hypotensive shock, s ignificant edema. Resulted in intubation, extubated this morning, still lethargic, continue to monitor Hypotensive shock, stop lisinopril, will avoid the use of ACEI and ARB do to angioedema, although it is unlikely to be the cause of her reaction, continue to monitor blood pressure Metabolic acidosis, lactic acidosis, better at this time. Electrolytes imbalance, better at this time. Continue to monitor Sinus node dysfunction with episodes of sinus bradycardia, was asymptomatic prior to the procedure. Currently heart rate is better. Continue to monitor Menopause, maintained on hormone replacement therapy. Family history of heart disease Clinical Quality Measures DVT/VTE Risk/Contraindication: Risk Factor Score Per Nursin RFS Level Per Nursing on Admit: 4+=Very High KATRIN CARTER MD Nov 28, 2018 06:34
--- NOTE | 2018-11-28 07:45 | Diagnostic Imaging Report ---
INDICATION: Shortness of breath, intubated. COMPARISON: 11/27/2018. FINDINGS: Single view of the chest demonstrates stable support lines. There is continued basilar atelectasis. There is no pneumothorax or large effusion. Heart is stable. No pulmonary edema. Osseous structures are age-appropriate. IMPRESSION: 1. Unchanged basilar atelectasis. 2. Stable support lines without pneumothorax. Dictated by: Dictated on workstation # [id number]
[2018-11-28] MEDS ORDERED: ARTIFICAL TEARS 0.4 ML UNIT DOSE (REFRESH PLUS) OU PRN (08:00)
[2018-11-28] MEDS: FAMOTIDINE 20MG/2ML IV (PEPCID) IVP SCH ×2 (08:34→20:36)
[2018-11-28 08:51] LABS: ALANINE AMINOTRANSFERASE 12 U/L (0-55); ALBUMIN 2.8 GM/DL (3.2-4.5); ALKALINE PHOSPHATASE 48 U/L (40-136); BILIRUBIN,DIRECT 0.2 MG/DL (0.0-0.3); BILIRUBIN,INDIRECT 0.1 MG/DL; BILIRUBIN,TOTAL 0.3 MG/DL (0.1-1.0)
[2018-11-28] MEDS ORDERED: MEDR2.5T6 PO (09:15)
[2018-11-28] MEDS ORDERED: ESTR1TAB24 PO (09:15)
--- NOTE | 2018-11-28 09:16 | NUR ---
SPOKE WITH PT WELL GOING OVER THE EXT MED HISTORY TO COMPLETE THE MED REC. PT STATES SHE TAKES ESTRACE AND MEDROXYPROGESTERONE ON WEDNESDAY, WEDNESDAY AND WEDNESDAY (HAD BEEN TAKING BOTH ONCE DAILY, PT SAYS THEY DECREASED HER DOSE SHORTLY AFTER SHE PICKED UP THE PRESCRIPTION). PT SAYS SHE IS NOT ON ANY OTHER PRESCRIPTION MEDICATION AND DOES NOT TAKE ANYTHING OTC.
[2018-11-28] MEDS: VANCOMYCIN 1 GM/NS 250 ML IVPB IV SCH ×4 (09:34→20:37)
[2018-11-28] MEDS: ASPIRIN E.C. 81 MG (ECOTRIN) TAB PO SCH (09:48)
[2018-11-28] MEDS: CLOPIDOGREL 75 MG (PLAVIX) TABLET PO SCH (09:48)
[2018-11-28] MEDS: ACETAMINOPHEN 500 MG TAB (TYLENOL) PO PRN (09:49)
--- NOTE | 2018-11-28 10:14 | NUR ---
RN said the pt was recently intubated due to an allergic reaction to dye. The pt was unaware fo this allergy. She was extubated this morning. When I arrived for a visit, The RN Spring was tending to the pt at bedside and said "you always arrive at the perfect time." The pt was tearful, demonstrating anxiety, verbalizing pain and the discomfort caused by edema. The pt began to weep after I told her I was the molding room supervisor and offered to pray with her. She asked us to please pray. Her daughter, Charmaine was present and we prayed together at the pt's bedside. I offered comforting presence and reassurance.
--- NOTE | 2018-11-28 11:02 | NUR ---
PT C/O OF SEVERE HEADACHE, DR AYERS ON FLOOR AND NOTIFIED THAT TYLENOL WAS GIVEN EARLIER FOR C/O OF GENERALIZED PAIN. NEW VERBAL ORDERS RECEIVED TO GIVE A 1 TIME DOSE OF LORTAB 5/325. PT SITTING UP IN CHAIR AFTER WORKING WITH PHYSICAL THERAPY. CALL LIGHT AND OTHER PERSONAL ITEMS WITHIN REACH. DAUGHTER AT BEDSIDE.
--- NOTE | 2018-11-28 11:06 | ST Dysphagia Evaluation ---
Speech Evaluation-General Medical Diagnosis NSTEMI Onset Date: Nov 26, 2018 Therapy Diagnosis Therapy Diagnosis: Oropharyngeal Dysphagia Precautions Precautions: Aspiration Precautions/Isolations: Aspiration, Fall Prevention, Standard Precautions Referral Referring Physician: Dr. Sy Reason for Referral: Evaluation/Treatment Medical History Pertinent Medical History: Atrial Fib None relevant Current History STEMI Reviewed History: Yes Social History Home: Single Level Current Living Status: Spouse Speech PLF/Current-Dysphagia Prior Level of Function The patient lived at home where she was independent for all of her needs. Subjective The patient was cooperative with the Bedside Dysphagia Evaluation Cognitive Status Patient is oriented to all concepts Oral Motor Skills Dentition: Natural Ability to Follow Directions: Good The patient was NPO pending BDE Oral Expression Ability: No Impairment Voice Voice Phonatory-Based Quality: Breathy Voice Pitch: Mildly Low Voice Loudness: Mildly Soft/Quiet Face Facial Symmetry: Symmetrical Patient's vocal quality is expected to improve with post extubation. Oral-Facial Assessment Oral-Facial Dentition: Normal Labial Seal Description: Normal Smile: Normal Lingual Protrusion: Normal Lingual ROM: Normal Lingual Strength: Normal Pharynx Velopharyngeal Move.: Normal Volitional Dry Swallow: Yes Voluntary Cough: Yes Dysphagia Evaluation Consistencies Presented: Regular, Thin Liquid, Mechanical Soft, Pureed Patient demonstrates normal range of function for oral phase of swallow. Patient demonstrates normal range of function for pharyngeal phase of swallow. Dietary Recommendations: Regular Liquid Recommendations: Thin Swallowing Precautions: Alternate Liquids/Solids, Decreased Bolus 1/2 Tsp, Liquids from Straw, Small Bites and Sips, Sitting Upright 90 Degrees, Sitting 90 Degrees 30 Post Intake Dysphagia Evaluation Summary The patient presented to the ER on 08/26/18 with chest pain. She was admitted to ICU where she was intubated due to respiratory failure. The patient was extubated and was referred for a BDE, The evaluation was completed with thin liquids presented by 1/2 tsp x2 and small sips via straw x2 without difficulty. Puree, mechanical soft and regular textures were also presented at 1/2 tsp. size without difficulty. The patient will be on a regular with thin liquids. This information was provided for Spring, the patient's nurse and written on the white board in the patient's room. Barriers to Learning Patient's current medical status. Speech-Plan Patient/Family Goals Patient/Family Goals: The patient plans on returning home with family support upon hospital discharge. Treatment Plan Speech Therapy Treatment Plan: Discontinue ST The patient does not require skilled ST services at this time. Treatment Duration: Nov 28, 2018 Frequency: 1 time per week Estimated Hrs Per Day: .25 hour per day Rehab Potential: Good Barriers to Learning: Patient's current medical status. Pt/Family Agrees to Plan: Yes Safety Risks/Education Teaching Recipient: Patient, Family Teaching Methods: Demonstration, Discussion Response to Teaching: Verbalize Understanding, Return Demonstration Education Topics Provided: Safety strategies for oral intake. Time Speech Therapy Time In: 09:35 Speech Therapy Time Out: 09:50 Total Billed Time: 15 Billed Treatment Time 1, DANK Lemons Nov 28, 2018 11:06
--- NOTE | 2018-11-28 11:07 | Physical Therapy Evaluation ---
PT Evaluation-General Medical Diagnosis Admission Date Nov 25, 2018 at 21:25 Medical Diagnosis: NStemi Onset Date: Nov 25, 2018 Therapy Diagnosis Therapy Diagnosis: generalized weakness/debility Height/Weight Height (Feet): 5 Height (Inches): 2.00 Weight (Pounds): 180 Weight (Ounces): 3.0 Precautions Precautions/Isolations: Aspiration, Fall Prevention, Standard Precautions Weight Bear Status Right Lower Extremity: Right Weight Bearing/Tolerated Left Lower Extremity: Left Weight Bearing/Tolerated Referral Physician: Sophia Reason for Referral: Evaluation/Treatment Medical History Additional Medical History unremarkable Current History ER secondary to CP/respiratory failure secondary to anaphylactic reaction during heart cath. Reviewed History: Yes Social History Home: Single Level Current Living Status: Alone Prior/Core FIM Prior Level of Function Therapy Code Descriptions/Definitions Functional [place] Measure: 0=Not Assessed/NA 4=Minimal Assistance 1=Total Assistance 5=Supervision or Setup 2=Maximal Assistance 6=Modified [place] 3=Moderate Assistance 7=Complete [place] Therapy Quality Codes: 6 Independent with activity with or without an assistive device 5 Patient requires set up or clean up by helper. Patient completes activity by themselves 4 Supervision or touching assist (CGA). [place] provide cues , steadying assist 3 The helper provides less than half the effort to complete the activity 2 The helper provides more than half the effort to complete the activity 1 Dependent. The helper does all the effort to complete an activity 7 Patient refused to complete or attempt activity 9 The patient did not perform the activity before the current illness or injury 88 Not attempted due to Medical conditions or safety concerns Functional Abilities and Goals: Independent: Patient completed the activities by him/herself, with or without an assistive device, with no assistance from a helper. Needed Some Help: Patient needed partial assistance from another person to complete activities. Dependent: A helper completed the activities for the patient. Unknown: Not Applicable: Bed Mobility: 7 Transfers (B,C,W/C) (FIM): 7 Gait: 7 Stairs: 7 Indoor Mobility (Ambulation): Independent Stairs: Independent Prior Devices Use: None PT Evaluation-Current Subjective Patient is lethargic and noticeable shaking due to extubated this a.m. and medication. Pain Numeric Pain Scale: 3 Location: Medial Location Body Site: Chest Pain Description: Ache Comment: RN present Objective Patient Orientation: Normal For Age Problem Solving: Fair Attachments: Carpenter Catheter, IV ROM/Strength ROM Lower Extremities bilateral LE WFL Strength Lower Extremities 3/5 grossly bilaterally Integumentary/Posture Integumentary refer to nursing notes Bladder Incontinence: Carpenter Cath Posture WFL Neuromuscular (Tone, Coordination, Reflexes) noted tremors bilateral extremities (possibly due to medication) Sensory Vision: Wears Glasses Hearing: Functional Sensation Right Lower Extremit: Intact Sensation Left Lower Extremity: Intact Transfers Therapy Code Descriptions/Definitions Functional [place] Measure: 0=Not Assessed/NA 4=Minimal Assistance 1=Total Assistance 5=Supervision or Setup 2=Maximal Assistance 6=Modified [place] 3=Moderate Assistance 7=Complete [place] Transfers (B, C, W/C) (FIM): 4 Scootin Supine to/from Sit: 4 Sit to/from Stand: 4 Gait Mode of Locomotion: Walk Anticipated Mode of Locomotion: Walk Gait (FIM): 1 Distance (FIM): 1=up to 49 ft Distance: 5' Gait Level of Assist: 3 Gait Persons Needed: 1 Gait Assistive Device: FWW Comments/Gait Description unsteady and retropulsive with FWW Balance Sitting Static: Fair Sitting Dynamic: Fair Standing Static: Fair Standing Dynamic: Fair Assessment/Needs 53 y.o. female, will benefit from skilled PT to address functional strength and mobility to improve current LOF to safely return to home independently at [facility]. Rehab Potential: Good PT Short Term Goals Short Term Goals Time Frame: Dec 02, 2018 Transfers (B,C,W/C) (FIM): 7 Gait (FIM): 7 Distance (FIM): 3=150 ft Gait Distance Comment: >300' Gait Level of Assist: 7 Gait Assistive Device: None PT Plan Problem List Problem List: Activity Tolerance, Functional Strength, Safety, Balance, Gait, Transfer, Bed Mobility Treatment/Plan Treatment Plan: Continue Plan of Care Treatment Plan: Bed Mobility, Education, Functional Activity Jyoti, Functional Strength, Gait, Safety, Therapeutic Exercise, Transfers Treatment Duration: Dec 02, 2018 Frequency: 5 times per week Estimated Hrs Per Day: .25 hour per day Patient and/or Family Agrees t: Yes Discharge Recommendations Therapy D/C Recommendations: Home w/ Family Support, Home Independently Time/GCodes Time In: 1000 Time Out: 1024 Total Billed Treatment Time: 24 Total Billed Treatment 1 visit EVMod 24 min LUCIANO PHILIP PT Nov 28, 2018 11:07
[2018-11-28] MEDS ORDERED: HYDROcodone/APAP 5 MG/325 MG (LORTAB) TAB PO NR (11:15)
--- NOTE | 2018-11-28 12:36 | Progress Note - Hospitalist ---
Subjective HPI/CC On Admission Date Seen by Provider: Nov 28, 2018 Time Seen by Provider: 08:45 Subjective/Events-last exam She was extubated this morning and is doing well at this time. She is a bit timid this morning. She denies any chest pain, dyspnea, abdominal pain, nausea, vomiting. Denies any swelling of her tongue or throat. Focused Exam Lactate Level 11/27/18 14:40: Lactic Acid Level 3.16*H 11/27/18 23:33: Lactic Acid Level 2.91*H 11/28/18 03:00: Lactic Acid Level 2.56*H Objective Exam Vital Signs Vital Signs Date Time Temp Pulse Resp B/P (MAP) Pulse Ox O2 Delivery O2 Flow Rate FiO2 11/28/18 12:00 97.8 11/28/18 12:00 102 120/72 (88) 98 Room Air 11/28/18 10:00 18 11/28/18 08:25 2.00 11/28/18 05:24 28 Capillary Refill : Less Than 3 Seconds General Appearance: No Apparent Distress, Anxious HEENT: PERRL/EOMI, Pharynx Normal, Moist Mucous Membranes Neck: Non Tender, Supple Respiratory: Normal Breath Sounds, No Accessory Muscle Use, No Respiratory Distress; No Stridor Cardiovascular: Regular Rate, Rhythm, No Edema, No Murmur Gastrointestinal: Normal Bowel Sounds, Non Tender, Soft Genital/Rectal: Other Extremity: Normal Capillary Refill, Non Tender, No Pedal Edema Neurologic/Psychiatric: Alert Skin: Normal Color, Warm/Dry Lymphatic: No Adenopathy Results/Procedures Lab Laboratory Tests 11/27/18 14:40 11/27/18 23:33 11/28/18 03:00 Patient resulted labs reviewed. Imaging: Reviewed Imaging Report Assessment/Plan Assessment and Plan Assess & Plan/Chief Complaint Anaphylactic shock, resolved Contrast allergy Developed anaphylaxis following contrast with cardiac catheterization Extubated this morning Continues on Solu-Medrol, Benadryl, and Pepcid Currently on vancomycin and Zosyn with shock, cultures pending Lactic acidosis LR 150/hour NSTEMI RCA stent placed Continue aspirin, Plavix, Lipitor, metoprolol BRADLY inhibitor being held due to anaphylaxis Echo with EF 60-65 percent Leukocytosis WBC 15.9, trending down, likely left shift secondary to steroids Diagnosis/Problems Diagnosis/Problems (1) Anaphylactic shock as adv eff correct medicin substanc proper administ Status: Acute Qualifiers: Encounter type: initial encounter Qualified Codes: T88.6XXA - Anaphylactic reaction due to adverse effect of correct drug or medicament properly administered, initial encounter (2) NSTEMI (non-ST elevated myocardial infarction) Status: Acute (3) Leukocytosis Status: Acute Qualifiers: Leukocytosis type: leukemoid reaction Qualified Codes: D72.823 - Leukemoid reaction (4) Lactic acidosis Clinical Quality Measures DVT/VTE Risk/Contraindication: Risk Factor Score Per Nursin RFS Level Per Nursing on Admit: 4+=Very High JOHN AYERS MD Nov 28, 2018 12:36
--- NOTE | 2018-11-28 16:16 | Occupational Therapy Eval ---
OT Evaluation-General/PLF Medical Diagnosis Admission Date Nov 25, 2018 at 21:25 Medical Diagnosis: NStemi Onset Date: Nov 25, 2018 Therapy Diagnosis Therapy Diagnosis: Weakness Height/Weight Height (Feet): 5 Height (Inches): 2.00 Weight (Pounds): 180 Weight (Ounces): 3.0 Precautions Precautions/Isolations: Aspiration, Fall Prevention, Pressure Ulcer Safety Interventions: Bed Exit Alarm Weight Bear Status Weight Bearing Restriction: Weight Bearing/Tolerated Referral Physician: Sophia Referral Reason: Activity Tolerance, Self Care, Evaluation/Treatment, Strengthening/ROM Medical History Pertinent Medical History: Atrial Fib Additional Medical History Pt. began having chest pains. Came to hospital. Underwent heart cath. Went into anaphylactic shock. Intubated. Extubated this morning. Reviewed History: Yes Social History Home: Single Level Current Living Status: Alone Entry Into Home: Level Entry ADL-Prior Level of Function Therapy Code Descriptions/Definitions Functional [place] Measure: 0=Not Assessed/NA 4=Minimal Assistance 1=Total Assistance 5=Supervision or Setup 2=Maximal Assistance 6=Modified [place] 3=Moderate Assistance 7=Complete [place] Therapy Quality Codes: 6 Independent with activity with or without an assistive device 5 Patient requires set up or clean up by helper. Patient completes activity by themselves 4 Supervision or touching assist (CGA). [place] provide cues , steadying assist 3 The helper provides less than half the effort to complete the activity 2 The helper provides more than half the effort to complete the activity 1 Dependent. The helper does all the effort to complete an activity 7 Patient refused to complete or attempt activity 9 The patient did not perform the activity before the current illness or injury 88 Not attempted due to Medical conditions or safety concerns Functional Abilities and Goals: Independent: Patient completed the activities by him/herself, with or without an assistive device, with no assistance from a helper. Needed Some Help: Patient needed partial assistance from another person to com plete activities. Dependent: A helper completed the activities for the patient. Unknown: Not Applicable: ADL PLOF Comments Pt. states that she was independent with daily tasks previous to this hospitalization. 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 on cardiac monitors. Does not report pain level, but states that she is having chest pain. Appearance Pt. in bed. Very anxious. Pt. having overall body tremors. Mental Status/Objective Patient Orientation: Person, Place Attachments: IV, Oxygen, Telemetry Current Hand Dominance: Right Upper Extremity ROM Pt. is able to raise bilateral shoulders to approximately 45 degrees. Pt. very slow with this. Upper Extremity Coordination Impaired in bilateral UE. Edema: Pt. has edema in bilateral hands. ADL-Treatment Therapy Code Descriptions/Definitions Functional [place] Measure: 0=Not Assessed/NA 4=Minimal Assistance 1=Total Assistance 5=Supervision or Setup 2=Maximal Assistance 6=Modified [place] 3=Moderate Assistance 7=Complete [place] Therapy Quality Codes: 6 Independent with activity with or without an assistive device 5 Patient requires set up or clean up by helper. Patient completes activity by themselves 4 Supervision or touching assist (CGA). [place] provide cues , steadying assist 3 The helper provides less than half the effort to complete the activity 2 The helper provides more than half the effort to complete the activity 1 Dependent. The helper does all the effort to complete an activity 7 Patient refused to complete or attempt activity 9 The patient did not perform the activity before the current illness or injury 88 Not attempted due to Medical conditions or safety concerns OT spoke with pt. regarding current situation and previous independence level. Pt. states that she does not feel well. Demonstrates poor UE strength/mobility. Has multiple IV lines, and is experiencing tremors overall after extubation. Pt. reports that she is not hungry now, but that nursing has been trying to get her to eat. OT encourages her to attempt at next meal, with nursing present, to determine any swallowing needs. OT brought in built up handles to assist with grasp when feeding occurs. OT also brought in hand sponge and yellow theraband to attempt UE movement, strengthening, and edema management, when pt. is able. Pt's friend is in room and states that she will encourage her as well. Pt. declined OOB activity at this time, but is encouraged to set HOB in upright position as much as she can later on. Encouraged that this will assist her with clearing her lungs, etc...All needs met. Education OT Patient Education: Correct positioning, Exercise program, Progress toward Goal/Update tx plan, Purpose of tx/functional activities, Reviewed precautions, Rehab process Teaching Recipient: Patient, Friend Teaching Methods: Demonstration, Discussion Response to Teaching: Verbalize Understanding OT Short Term Goals Short Term Goals Time Frame: Dec 05, 2018 Eating(FIM): 5 Grooming(FIM): 4 Bathing(FIM): 3 Upper Body Dressing(FIM): 4 Lower Body Dressing(FIM): 3 Toileting(FIM): 3 Transfers (B,C,W/C) (FIM): 4 Toilet/Commode Transfer(FIM): 4 Additional Short Term Goals: 1-Demonstrate ADL Tasks, 2-Verbalize Understanding, 3-ImproveStrength/Jyoti 1=Demonstrate adherence to instructed precautions during ADL tasks. 2=Patient will verbalize/demonstrate understanding of assistive devices/modifications for ADL. 3=Patient will improve strength/tolerance for activity to enable patient to perform ADL's. OT Fpc Goals Fpc Goals Time Frame: Dec 12, 2018 Eating (FIM): 6 Grooming(FIM): 6 Bathing(FIM): 5 Upper Body Dressing(FIM): 6 Lower Body Dressing(FIM): 5 Toileting(FIM): 6 Transfers (B,C,W/C) (FIM): 6 Toilet/Commode Transfer(FIM): 6 Shower Transfer(FIM): 5 Additional Goals: 1-Demonstrate ADL Tasks, 2-Verbalize Understanding, 3- ImproveStrength/Jyoti 1=Demonstrate adherence to instructed precautions during ADL tasks. 2=Patient will verbalize/demonstrate understanding of assistive de vices/modifications for ADL. 3=Patient will improve strength/tolerance for activity to enable patient to perform ADL's. OT Education/Plan Problem List/Assessment Assessment: Decreased Activ Tolerance, Decreased UE Strength, Dependent Transfers, Impaired Bed Mobility, Impaired Coordination, Impaired Funct Balance, Impaired I ADL's, Impaired Self-Care Skills, Restricted Funct UE ROM Discharge Recommendations Plan/Recommendations: Continue POC Therapy D/C Recommendations: Home w/ Family Support, Occupational Therapy Home Care Treatment Plan/Plan of Care Treatment,Training & Education: Yes Patient would benefit from OT for education, treatment and training to promote independence in ADL's, mobility, safety and/or upper extremity function for ADL's. Plan of Care: ADL Retraining, Functional Mobility, UE Funct Exercise/Act Treatment Duration: Dec 12, 2018 Frequency: 5 times per week Estimated Hrs Per Day: .5 hour per day Agreement: Yes Rehab Potential: Good Time/GCodes Start Time: 15:20 Stop Time: 15:37 Total Time Billed (hr/min): 17 Billed Treatment Time 1, JUSTIN MCFADDEN OT Nov 28, 2018 16:16
--- NOTE | 2018-11-28 16:33 | NUR ---
DR AYERS NOTIFIED THAT PT CONTINUES TO C/O OF HEADACHE AND NECK PAIN. OXYCODONE THAT WAS ORDERED EARLIER DID GIVE PT SOME RELIEF HOWEVER ONLY LASTED FOR ABOUT 2 HOURS. PT ANXIOUS AND HEART RATED NOTED TO BE IN THE 120'S WHEN SHE HAS THE PAIN. NEW ORDERS RECEIVED FOR XANAX 0.25MG PO QID PRN. PT NOTIFIED. PT LYING IN BED AT THIS TIME FRIEND AT BEDSIDE, CALL LIGHT AND OTHER PERSONAL ITEMS WITHIN REACH.
[2018-11-28] MEDS: ALPRAZolam 0.25 MG (XANAX) TAB PO PRN (16:46)
--- NOTE | 2018-11-28 18:51 | NUR ---
1830 PT C/O OF CHEST PAIN, EKG DONE AND NITRO TAB GIVEN X 1 DOSE. VSS BP 131/79 PULSE 107, PT 98% ON ROOM AIR. DR CARTER NOTIFIED OF EKG RESULTS, NO NEW ORDERS RECEIVED, NITRO TABLET RELIEVED CHEST PAIN, PT REPOSITIONED AND SITTING UP ON SIDE OF BED. FAMILY AT BEDSIDE. WILL CONTINUE TO MONITOR.
[2018-11-28] MEDS: morphine INJ 4 MG/ML 1 ML (VIAL/SYRINGE) IV PRN (19:41)
[2018-11-28] MEDS: ATORVASTATIN 40 MG (LIPITOR) TABLET PO SCH (20:36)
--- NOTE | 2018-11-28 23:29 | NUR ---
patient refused SVN breathing tx; Patient said if she got SOA and needed a svn breathing tx she would call out; she feels she needs to sleep until morning.
[2018-11-29] VITALS (11 sets, daily range): BP systolic 112–129; BP diastolic 63–77
[2018-11-29] MEDS: RT-ALBUTEROL/IPRATROPIUM 3 ML (DUONEB) VIAL INH SCH ×5 (02:56→23:47)
--- NOTE | 2018-11-29 02:59 | NUR ---
Earlier treatment patient stated that if she was asleep to not give her a breathing tx; she states she just wants to get some rest. RT went to check on patient and she was asleep so TNA at this time
[2018-11-29 03:04] LABS: BASOPHILS % (AUTO) 0 % (0-10); EOSINOPHILS % (AUTO) 0 % (0-10); HEMATOCRIT 30 % (35-52); HEMOGLOBIN 10.3 G/DL (11.5-16.0); LYMPHOCYTES # (AUTO) 0.5 X 10^3 (1.0-4.0); LYMPHOCYTES % (AUTO) 3 % (12-44); MEAN CORPUSCULAR HEMOGLOBIN 29 PG (25-34); MEAN CORPUSCULAR HGB CONC 34 G/DL (32-36); MEAN CORPUSCULAR VOLUME 85 FL (80-99); MONOCYTES # (AUTO) 0.5 X 10^3 (0.0-1.0); MONOCYTES % (AUTO) 4 % (0-12); NEUTROPHILS # (AUTO) 14.1 X 10^3 (1.8-7.8); NEUTROPHILS % (AUTO) 93 % (42-75); PLATELET COUNT 152 10^3/uL (130-400); RED CELL DISTRIBUTION WIDTH 14.5 % (10.0-14.5); WHITE BLOOD COUNT 15.2 10^3/uL (4.3-11.0)
[2018-11-29 03:21] LABS: BUN/CREATININE RATIO 16; CALCIUM 7.5 MG/DL (8.5-10.1); CARBON DIOXIDE 21 MMOL/L (21-32); CHLORIDE 112 MMOL/L (98-107); CREATININE SERUM 0.74 MG/DL (0.60-1.30); GFR ESTIMATED > 60; GLUCOSE 116 MG/DL (70-105); MAGNESIUM 2.5 MG/DL (1.8-2.4); PHOSPHORUS 3.3 MG/DL (2.3-4.7); POTASSIUM 4.1 MMOL/L (3.6-5.0); SODIUM 142 MMOL/L (135-145)
[2018-11-29] MEDS: LACTATED RINGERS 1,000 ML IV SCH (04:19)
[2018-11-29] MEDS: morphine INJ 4 MG/ML 1 ML (VIAL/SYRINGE) IV PRN (04:19)
[2018-11-29] MEDS: PIPERACILLIN/TAZOBACTAM (BULK) 4.5 GM in NS (IVPB) 100 ML IV SCH ×3 (05:09→21:09)
[2018-11-29] MEDS: inSUlin ASPART (NovoLOG) 1 UNIT/0.01 ML (CHARGE PER UNIT) SC SCH ×4 (05:18→21:02)
[2018-11-29] MEDS ORDERED: CALCIUM GLUCONATE 10% INJ 4.65 MEQ in NS (IVPB) 50 ML IV ONE (05:45)
--- NOTE | 2018-11-29 06:34 | Pulmonary Progress Note ---
Subjective Time Seen by a Provider: 06:32 Subjective/Events-last exam Pt is doing better. Sepsis Event Evaluation Height, Weight, BMI Height: 5'2.00" Weight: 179lbs. 6.0oz. 81.196478bm; 29.3 BMI Method:Stated Focused Exam Lactate Level 11/27/18 14:40: Lactic Acid Level 3.16*H 11/27/18 23:33: Lactic Acid Level 2.91*H 11/28/18 03:00: Lactic Acid Level 2.56*H Exam Exam Vital Signs Date Time Temp Pulse Resp B/P (MAP) Pulse Ox O2 Delivery O2 Flow Rate FiO2 11/29/18 06:00 61 112/63 (79) 98 Room Air 11/29/18 05:00 76 127/64 (85) 99 Room Air 11/29/18 04:22 97.2 11/29/18 04:00 63 119/68 (85) 98 Room Air 11/29/18 04:00 97 Room Air 11/29/18 03:00 70 125/68 (87) 99 Room Air 11/29/18 02:57 96 Room Air 11/29/18 02:00 64 124/73 (90) 97 Room Air 11/29/18 01:00 80 11/29/18 01:00 80 122/66 (84) 99 Room Air 11/29/18 00:00 82 127/70 (89) 97 Room Air 11/29/18 00:00 97 Room Air 11/28/18 23:57 98.2 11/28/18 23:21 98.9 11/28/18 23:17 96 Room Air 11/28/18 23:00 80 125/71 (89) 98 Room Air 11/28/18 22:00 83 124/76 (92) 97 Room Air 11/28/18 21:00 87 128/72 (90) 97 Room Air 11/28/18 20:00 98.8 11/28/18 20:00 98.8 11/28/18 20:00 97 Room Air 11/28/18 20:00 89 122/74 (90) 98 Room Air 11/28/18 19:13 92 11/28/18 19:00 92 124/75 (91) 98 Room Air 11/28/18 18:45 99 Room Air 11/28/18 18:00 102 120/75 (90) 99 Room Air 11/28/18 17:00 101 136/79 (98) 97 Room Air 11/28/18 16:19 95 Room Air 11/28/18 16:00 99.0 11/28/18 16:00 104 128/82 (97) 97 Room Air 11/28/18 15:00 107 128/76 (93) 99 Room Air 11/28/18 14:47 97 Room Air 11/28/18 14:00 96 130/64 (86) 99 Room Air 11/28/18 13:00 107 129/69 (89) 99 Room Air 11/28/18 12:47 102 11/28/18 12:00 97.8 11/28/18 12:00 98 Room Air 11/28/18 12:00 102 120/72 (88) 98 Room Air 11/28/18 11:00 105 108/69 (82) 98 Room Air 11/28/18 10:26 97 Room Air 11/28/18 10:00 96 18 103/63 (76) 97 Room Air 11/28/18 09:00 99 17 102/58 (73) 98 Room Air 11/28/18 08:25 98 Nasal Cannula 2.00 11/28/18 08:00 89 16 91/58 (69) 97 Room Air 11/28/18 07:00 94 13 96/65 (75) 100 Room Air 11/28/18 07:00 86 I & O 11/29/18 07:00 Intake Total 3680 ml Output Total 7600 ml Balance -3920 ml Height & Weight Height: 5'2.00" Weight: 179lbs. 6.0oz. 81.875666yg; 29.3 BMI Method:Stated General Appearance: No Apparent Distress, Anxious, Thin HEENT: PERRL/EOMI, Pharynx Normal Neck: Full Range of Motion, Non Tender, Supple Respiratory: Lungs Clear, Normal Breath Sounds, No Accessory Muscle Use, No Respiratory Distress Cardiovascular: Regular Rate, Rhythm, No Edema, No Murmur Capillary Refill: Less Than 3 Seconds Gastrointestinal: normal bowel sounds, non tender, soft, no organomegaly Extremity: Normal Capillary Refill, Non Tender, Pedal Edema Neurologic/Psychiatric: Alert Skin: Normal Color, Warm/Dry Lymphatic: No Adenopathy Results Lab Laboratory Tests 11/27/18 14:40 11/27/18 23:33 11/28/18 03:00 11/29/18 03:00 Assessment/Plan Assessment/Plan S/P Acute respiratory failure secondary to anaphylactic reaction -Pt is doing well off of vent. -D/C solumedrol Metabolic lactic acidosis secondary to hypotension - improving -Hep lock IVF Leukocytosis secondary to solumedrol r/o infection -- D/C Vanco, Continue Zosyn for now Anemia -Monitor RONY JAMES DO Nov 29, 2018 06:34
[2018-11-29] MEDS: CATHETER FLUSH 10 ML SYR IV SCH ×3 (07:00→21:05)
[2018-11-29] MEDS: POTASSIUM CL 10MEQ/50ML IVPB 50 ML IV SCH (07:00)
[2018-11-29] MEDS: KCL 20 MEQ TAB (K-DUR) PO SCH (07:00)
[2018-11-29] MEDS: MAGNESIUM 1 GM/100 ML IVPB 100 ML IV SCH (07:00)
--- NOTE | 2018-11-29 07:50 | NUR ---
DR CARTER IN TO SEE PT, VERBAL ORDER RECEIVED TO GIVE 20MG IV LASIX. ORDER READ BACK AND ENTERED.
[2018-11-29] MEDS ORDERED: ARTIFICAL TEARS 0.4 ML UNIT DOSE (REFRESH PLUS) OU PRN (08:00)
[2018-11-29] MEDS ORDERED: TROUGH ORDER-PHARMACY XX NR (08:00)
[2018-11-29] MEDS ORDERED: FUROSEMIDE 40 MG/4 ML INJ (LASIX) IVP NR (08:00)
[2018-11-29] MEDS: IBUPROFEN 600 MG (MOTRIN) TAB PO SCH ×3 (08:19→16:07)
[2018-11-29] MEDS: CLOPIDOGREL 75 MG (PLAVIX) TABLET PO SCH (08:19)
[2018-11-29] MEDS: ASPIRIN E.C. 81 MG (ECOTRIN) TAB PO SCH (08:19)
--- NOTE | 2018-11-29 09:21 | Cardiology Progress Note ---
Subjective Date Seen by Provider: Nov 29, 2018 Time Seen by Provider: 09:20 Subjective/Events-last exam Patient is laying down in bed, complaining of generalized fatigue and loss of energy. No chest pain. Still having burning in her eyes Review of Systems General: No Chills, No Night Sweats, No Fatigue, No Malaise, No Appetite, No Other HEENT: No Head Aches, No Visual Changes, No Eye Pain, No Ear Pain, No Dysphasia, No Sinus Congestion, No Post Nasal Drip, No Sore Throat, No Other Pulmonary: Dyspnea; No Cough, No Pleuritic Chest Pain, No Other Cardiovascular: No: Chest Pain, Palpitations, Orthopnea, Paroxysmal Noc. Dyspnea, Edema, Lt Headedness, Other Focused Exam Lactate Level 11/27/18 14:40: Lactic Acid Level 3.16*H 11/27/18 23:33: Lactic Acid Level 2.91*H 11/28/18 03:00: Lactic Acid Level 2.56*H Objective-Cardiology Exam Last Set of Vital Signs Vital Signs 11/28/18 11/28/18 11/29/18 11/29/18 11/29/18 11/29/18 08:25 10:00 04:22 06:45 08:00 08:20 Temp 97.2 Pulse 75 Resp 18 B/P (MAP) 122/77 (92) Pulse Ox 97 O2 Delivery Room Air O2 Flow Rate 2.00 FiO2 100 Capillary Refill : Less Than 3 Seconds I&O Intake and Output 11/29/18 00:00 Intake Total 3890 ml Output Total 7450 ml Balance -3560 ml Intake Oral 930 ml IV Total 2960 ml Output Urine Total 7450 ml General: Alert, Oriented X3, Cooperative, Mild Distress HEENT: Atraumatic Neck: No JVD, No Thyromegaly Lungs: Clear to Auscultation, Normal Air Movement Heart: Regular Rate, Normal S1, Normal S2, No Murmurs Abdomen: Normal Bowel Sounds, Soft, No Hepatosplenomegaly, No Masses Extremities: No Clubbing, No Cyanosis, No Edema, Normal Pulses, No Tenderness/Swelling Skin: No Rashes, No Breakdown, No Significant Lesion Neuro: Normal Speech Psych/Mental Status: Mental Status NL, Mood NL Results Lab Laboratory Tests 11/29/18 03:00 A/P-Cardiology Admission Diagnosis Non-ST elevation of cardiac infarction Coronary artery disease Sinus node dysfunction Chest pain Assessment/Plan Non-ST elevation myocardial infarction, status post cardiac catheterization showing subtotal occlusion of the right coronary artery, successful stenting to the right coronary artery using 4.0 stent in RCA, excellent results, continue to monitor Anaphylactic reaction probably to contrast, patient had hypotensive shock, significant edema, extubated, doing well. Continue to monitor Hypotensive shock, stop lisinopril, will avoid the use of ACEI and ARB do to angioedema, although it is unlikely to be the cause of her reaction, continue to monitor blood pressure Metabolic acidosis, lactic acidosis, better at this time. Electrolytes imbalance, better at this time. Continue to monitor Sinus node dysfunction with episodes of sinus bradycardia, was asymptomatic prior to the procedure. Currently heart rate is better. Continue to monitor Menopause, maintained on hormone replacement therapy. Family history of heart disease Okay to transfer to cardiac except on unit Clinical Quality Measures DVT/VTE Risk/Contraindication: Risk Factor Score Per Nursin RFS Level Per Nursing on Admit: 4+=Very High KATRIN CARTER MD Nov 29, 2018 09:21
--- NOTE | 2018-11-29 09:28 | Physical Therapy Daily Note ---
PT Daily Note-Current Subjective Patient is emotional stating, "I just found out how bad it really was." Pain Numeric Pain Scale: 0-No Pain Location: No Pain Reported Mental Status Patient Orientation: Normal For Age Attachments: Carpenter Catheter, IV Transfers Therapy Code Descriptions/Definitions Functional [place] Measure: 0=Not Assessed/NA 4=Minimal Assistance 1=Total Assistance 5=Supervision or Setup 2=Maximal Assistance 6=Modified [place] 3=Moderate Assistance 7=Complete [place] Therapy Quality Codes: 6 Independent with activity with or without an assistive device 5 Patient requires set up or clean up by helper. Patient completes activity by themselves 4 Supervision or touching assist (CGA). [place] provide cues , steadying assist 3 The helper provides less than half the effort to complete the activity 2 The helper provides more than half the effort to complete the activity 1 Dependent. The helper does all the effort to complete an activity 7 Patient refused to complete or attempt activity 9 The patient did not perform the activity before the current illness or injury 88 Not attempted due to Medical conditions or safety concerns Transfers (B, C, W/C) (FIM): 5 Scootin Rollin Supine to/from Sit: 5 Sit to/from Stand: 5 Bed to/from Chair: 5 Weight Bearing Right Lower Extremity: Right Weight Bearing/Tolerated Left Lower Extremity: Left Weight Bearing/Tolerated Gait Training Gait (FIM): 5 Distance (FIM): 3=150 ft Distance: 150' Gait Level of Assist: 5 Gait Assistive Device: FWW very slow, functional gait sequence Assessment Patient requires time to complete functional tasks. PT encouraged patient to perform ambulation with family or nursing PRN and to remain up, OOB, during day. Patient voices understanding. PT Short Term Goals Short Term Goals Time Frame: Dec 02, 2018 Transfers (B,C,W/C) (FIM): 4 Gait (FIM): 7 Distance (FIM): 3=150 ft Gait Distance Comment: >300' Gait Level of Assist: 7 Gait Assistive Device: None PT Plan Treatment/Plan Treatment Plan: Continue Plan of Care Treatment Plan: Bed Mobility, Education, Functional Activity Jyoti, Functional Strength, Gait, Safety, Therapeutic Exercise, Transfers Treatment Duration: Dec 02, 2018 Frequency: 5 times per week Estimated Hrs Per Day: .25 hour per day Patient and/or Family Agrees t: Yes Time/GCodes Time In: 800 Time Out: 824 Total Billed Treatment Time: 24 Total Billed Treatment 1 visit FA x 2 24 min LUCIANO PHILIP PT Nov 29, 2018 09:28
--- NOTE | 2018-11-29 09:45 | Diagnostic Imaging Report ---
INDICATION: Post extubation, myocardial infarction, anaphylactic shock. TECHNIQUE: Single view chest at 3:38 AM. CORRELATION STUDY: 11/28/2018. FINDINGS: Interval extubation. Right IJ central line tip over the low SVC. Heart size and mediastinum are stable. Lungs are relatively clear with slight asymmetrically elevated right diaphragm. IMPRESSION: Interval extubation. Dictated by: Dictated on workstation # [id number]
--- NOTE | 2018-11-29 11:25 | Occupational Ther Daily Note ---
OT Current Status-Daily Note Subjective Pt alert, sitting in recliner. Family present in room. Pt agrees to therapy. Daughter stated that pt was able to ambulate out in the [place]arc[place]. Pt anxious about going to 4th floor. Mental Status/Objective Patient Orientation: Person, Place, Time, Situation Therapy Code Descriptions/Definitions Functional [place] Measure: 0=Not Assessed/NA 4=Minimal Assistance 1=Total Assistance 5=Supervision or Setup 2=Maximal Assistance 6=Modified [place] 3=Moderate Assistance 7=Complete [place] Attachments: IV, Telemetry Other Treatment Pt completed UE exercises against gravity. Pt had tremors during exercises due to decreased activity tolerance. 4 shldr exercises, 1 set 5 reps, 3 bicep/tricep exercises 10 reps and 3 hand exercises 10 reps. Pt has increased edema in hands, recommended pt to continue with exercises in room to increase strength and activity tolerance and decrease edema in hands. After therapy, pt sitting in recliner with call light/phone in reach. All needs met in room. Daughter present in room. OT Short Term Goals Short Term Goals Time Frame: Dec 05, 2018 Eating(FIM): 5 Grooming(FIM): 4 Bathing(FIM): 3 Upper Body Dressing(FIM): 4 Lower Body Dressing(FIM): 3 Toileting(FIM): 3 Transfers (B,C,W/C) (FIM): 4 Toilet/Commode Transfer(FIM): 4 Additional Short Term Goals: 1-Demonstrate ADL Tasks, 2-Verbalize Understanding, 3-ImproveStrength/Jyoti 1=Demonstrate adherence to instructed precautions during ADL tasks. 2=Patient will verbalize/demonstrate understanding of assistive devices/modifications for ADL. 3=Patient will improve strength/tolerance for activity to enable patient to perform ADL's. OT Manufacturer Goals Fdc Goals Time Frame: Dec 12, 2018 Eating (FIM): 6 Grooming(FIM): 6 Bathing(FIM): 5 Upper Body Dressing(FIM): 6 Lower Body Dressing(FIM): 5 Toileting(FIM): 6 Transfers (B,C,W/C) (FIM): 6 Toilet/Commode Transfer(FIM): 6 Shower Transfer(FIM): 5 Additional Goals: 1-Demonstrate ADL Tasks, 2-Verbalize Understanding, 3- ImproveStrength/Jyoti 1=Demonstrate adherence to instructed precautions during ADL tasks. 2=Patient will verbalize/demonstrate understanding of assistive devices/modifications for ADL. 3=Patient will improve strength/tolerance for activity to enable patient to perform ADL's. OT Education/Plan Problem List/Assessment Assessment: Decreased Activ Tolerance, Decreased UE Strength Discharge Recommendations Plan/Recommendations: Continue POC Treatment Plan/Plan of Care Patient would benefit from OT for education, treatment and training to promote independence in ADL's, mobility, safety and/or upper extremity function for ADL's. Plan of Care: ADL Retraining, Functional Mobility, UE Funct Exercise/Act Treatment Duration: Dec 12, 2018 Frequency: 5 times per week Estimated Hrs Per Day: .5 hour per day Agreement: Yes Rehab Potential: Good Time/GCodes Start Time: 11:10 Stop Time: 11:25 Total Time Billed (hr/min): 10 Billed Treatment Time 1 visit-EX 1 (15 min) DIMPLE GUEVARA Nov 29, 2018 11:25
--- NOTE | 2018-11-29 11:59 | Progress Note - Hospitalist ---
Subjective HPI/CC On Admission Date Seen by Provider: Nov 29, 2018 Time Seen by Provider: 09:30 Subjective/Events-last exam She denies chest pain and dyspnea. She feels shaky this morning. She says "I just don't feel good". She denies nausea, vomiting, abdominal pain, headache. Review of Systems General: No Chills; Malaise HEENT: No Head Aches Pulmonary: No Dyspnea Cardiovascular: No: Chest Pain Gastrointestinal: No: Nausea, Vomiting, Abdominal Pain Focused Exam Lactate Level 11/27/18 14:40: Lactic Acid Level 3.16*H 11/27/18 23:33: Lactic Acid Level 2.91*H 11/28/18 03:00: Lactic Acid Level 2.56*H Objective Exam Vital Signs Vital Signs Date Time Temp Pulse Resp B/P (MAP) Pulse Ox O2 Delivery O2 Flow Rate FiO2 11/29/18 10:21 100 Room Air 11/29/18 08:00 75 122/77 (92) 11/29/18 06:45 100 11/29/18 04:22 97.2 11/28/18 10:00 18 11/28/18 08:25 2.00 Capillary Refill : Less Than 3 Seconds General Appearance: No Apparent Distress, WD/WN, Anxious HEENT: PERRL/EOMI, Pharynx Normal Neck: Normal Inspection, Non Tender, Supple Respiratory: Chest Non Tender, Lungs Clear, Normal Breath Sounds, No Respiratory Distress Cardiovascular: Regular Rate, Rhythm, No Edema, No Murmur Gastrointestinal: Normal Bowel Sounds, Non Tender, Soft Extremity: Normal Inspection, Non Tender, No Pedal Edema Neurologic/Psychiatric: Alert; No Disoriented Skin: Normal Color, Warm/Dry Results/Procedures Lab Laboratory Tests 11/29/18 03:00 Patient resulted labs reviewed. Imaging: Reviewed Imaging Films, Reviewed Imaging Report Assessment/Plan Assessment and Plan Assess & Plan/Chief Complaint Anaphylactic shock, resolved Contrast allergy Developed anaphylaxis following contrast with cardiac catheterization Extubated 11/28 Discontinue steroids Continue Zosyn NSTEMI RCA stent placed Continue aspirin, Plavix, Lipitor, metoprolol BRADLY inhibitor being held due to anaphylaxis Echo with EF 60-65 percent Leukocytosis WBC 15.2, trending down, likely left shift secondary to steroids Anxiety Xanax ordered as needed Diagnosis/Problems Diagnosis/Problems (1) Anaphylactic shock as adv eff correct medicin substanc proper administ Status: Acute Qualifiers: Encounter type: initial encounter Qualified Codes: T88.6XXA - Anaphylactic reaction due to adverse effect of correct drug or medicament properly administered, initial encounter (2) NSTEMI (non-ST elevated myocardial infarction) Status: Acute (3) Leukocytosis Status: Acute Qualifiers: Leukocytosis type: leukemoid reaction Qualified Codes: D72.823 - Leukemoid reaction (4) Lactic acidosis Status: Resolved Resolution Date/Time: 11/29/18 @ 12:02 Clinical Quality Measures DVT/VTE Risk/Contraindication: Risk Factor Score Per Nursin RFS Level Per Nursing on Admit: 4+=Very High JOHN AYERS MD Nov 29, 2018 11:59
--- NOTE | 2018-11-29 12:11 | NUR ---
Pt to room 410. Report received from TAN Londono. Agree with previous assessment.
--- NOTE | 2018-11-29 12:22 | NUR ---
1210 PT TO 4TH FLOOR VIA W/C ACCOMPANIED BY THIS RN AND DAUGHTER. ALL PERSONAL BELONGING SENT WITH PT. REPORT GIVEN TO PETER MADDOX.
[2018-11-29] MEDS: ACETAMINOPHEN 500 MG TAB (TYLENOL) PO PRN (13:49)
[2018-11-29] MEDS: ALPRAZolam 0.25 MG (XANAX) TAB PO PRN (13:50)
--- NOTE | 2018-11-29 15:00 | NUR ---
Report received from Felicity RN, patient in room resting, call light within reach, family at bedside. Voices no complaints at this time. Will assume care of patient at this time.
--- NOTE | 2018-11-29 16:47 | Cardiac Cath Report ---
Cardiac Cath Report Physician (s)/Systems Lead (s) Physician KATRIN CARTER MD Pre-Procedure Diagnosis Pre-Procedure Diagnosis: non-ST [facility] Post-Procedure Note Procedure Start Date: Nov 26, 2018 Name of Procedure: Left heart catheterization Left ventriculogram Stent to the RCA Findings/Procedure Note PROCEDURE NOTE: 53 years old lady with history of hyperlipidemia, admitted with chest pain, accelerating angina, had elevation in troponin level. Scheduled for cardiac catheterization possible PTCA. After explaining the procedure to the patient, all pros and cons were explained, all questions were answered. The patient signed the consent and then she was placed on the cardiac catheterization laboratory. Groin was prepped SL fashion local anesthesia was used. Sheath placed in the right femoral artery. José Miguel right and left catheter were used to access the coronary system. Pigtail was used to access the left ventricular cavity. Left ventriculogram was done Patient was noted to have subtotal occlusion in the large dominant right coronary artery, I had difficulty intubating the right coronary artery with a JR catheter, I used short tip NSR guide patient was loaded with bolus of heparin and Integrilin. BMW wire was advanced to the distal right coronary artery then predilated with 3.5 balloon then proceeded with deployment of 4 x 18 mm Isha's drug-eluting stent expanded to 4.25 mm , results were excellent. Postoperatively patient started to have increasing shortness of breath or edema and tachycardia then hypotensive shock, it appear that she had anaphylactic shock due to allergic reaction. At the end of the procedure the sheath was removed. Closure device was used FINDINGS: Hemodynamics LV 128/18, end diastolic pressure 18 Aorta 125/66 mean of 93 ANATOMY: Left Main is free of obstructive disease Left Anterior Descending is occluded at the far distal portion of the apical s [place], almost hairline artery, reconstructed by collaterals not amendable to intervention Left Circumflex is moderate in size with no obstructive disease Right Coronory Artery is large dominant artery with subtotal occlusion at the midportion, successful balloon angioplasty then deployment of Isha 4 x 18 mm drug-eluting stent expanded to 4.25 mm with excellent results LV Gram is normal in size with normal contraction. Estimated ejection fraction 60 percent CONCLUSION: 1. Subtotal occlusion of the right coronary artery was successful deployment of Isha 4 x 18 mm drug-eluting set expanded to 4.25 with excellent results. No residual stenosis 2. Total occlusion at the distal portion of the LAD at the apical area, h airline artery, very small artery reconstructed by collaterals not amendable to intervention 3. Normal left ventricular size and systolic function estimated ejection fraction 60 percent 4. Anaphylactic shock with respiratory failure and intubation and hypotensive shock most probably secondary to IV contrast DISCUSSION AND RECOMMENDATION: Patient was transferred to intensive care unit, we'll continue monitoring and she was given aspirin and Plavix Anesthesia Type: Conscious Sedation Estimated blood loss (mL): 25 ml Contrast Amount: 130 ml Total Radiation Dose: 843 mGy Post-Procedure Diagnosis Post-operative diagnosis: Coronary artery disease Non-ST elevation myocardial infarction Hypertension Hyperlipidemia KATRIN CARTER MD Nov 29, 2018 4:47 pm
[2018-11-29] MEDS: ATORVASTATIN 40 MG (LIPITOR) TABLET PO SCH (21:09)
[2018-11-30] VITALS: BP 114/71
[2018-11-30] MEDS: RT-ALBUTEROL/IPRATROPIUM 3 ML (DUONEB) VIAL INH SCH ×3 (00:01→06:22)
[2018-11-30] MEDS: IBUPROFEN 600 MG (MOTRIN) TAB PO SCH ×2 (00:03→05:14)
[2018-11-30 04:00] VITALS: BP 101/56
[2018-11-30] MEDS: PIPERACILLIN/TAZOBACTAM (BULK) 4.5 GM in NS (IVPB) 100 ML IV SCH (05:15)
[2018-11-30] MEDS: CATHETER FLUSH 10 ML SYR IV SCH (05:30)
[2018-11-30 05:43] LABS: BASOPHILS % (AUTO) 0 % (0-10); EOSINOPHILS # (AUTO) 0.1 10^3/uL (0.0-0.3); EOSINOPHILS % (AUTO) 1 % (0-10); HEMATOCRIT 33 % (35-52); HEMOGLOBIN 10.6 G/DL (11.5-16.0); LYMPHOCYTES # (AUTO) 1.6 X 10^3 (1.0-4.0); LYMPHOCYTES % (AUTO) 17 % (12-44); MEAN CORPUSCULAR HEMOGLOBIN 28 PG (25-34); MEAN CORPUSCULAR HGB CONC 32 G/DL (32-36); MEAN CORPUSCULAR VOLUME 85 FL (80-99); MEAN PLATELET VOLUME 10.4 FL (7.4-10.4); MONOCYTES # (AUTO) 0.6 X 10^3 (0.0-1.0); MONOCYTES % (AUTO) 6 % (0-12); NEUTROPHILS # (AUTO) 7.2 X 10^3 (1.8-7.8); NEUTROPHILS % (AUTO) 76 % (42-75); PLATELET COUNT 170 10^3/uL (130-400); RED CELL DISTRIBUTION WIDTH 14.3 % (10.0-14.5); WHITE BLOOD COUNT 9.5 10^3/uL (4.3-11.0)
[2018-11-30] MEDS: inSUlin ASPART (NovoLOG) 1 UNIT/0.01 ML (CHARGE PER UNIT) SC SCH ×2 (06:28→11:26)
[2018-11-30 08:00] VITALS: BP 121/76
[2018-11-30] MEDS: ASPIRIN E.C. 81 MG (ECOTRIN) TAB PO SCH (08:21)
[2018-11-30] MEDS: CLOPIDOGREL 75 MG (PLAVIX) TABLET PO SCH (08:21)
--- NOTE | 2018-11-30 09:02 | Pulmonary Progress Note ---
Sepsis Event Evaluation Height, Weight, BMI Height: 5'2.00" Weight: 166lbs. 11.2oz. 75.928660ur; 29.3 BMI Method:Stated Focused Exam Lactate Level 11/27/18 14:40: Lactic Acid Level 3.16*H 11/27/18 23:33: Lactic Acid Level 2.91*H 11/28/18 03:00: Lactic Acid Level 2.56*H Exam Exam Vital Signs Date Time Temp Pulse Resp B/P (MAP) Pulse Ox O2 Delivery O2 Flow Rate FiO2 11/30/18 08:00 97.7 62 20 121/76 (91) 95 Room Air 11/30/18 06:22 97 Room Air 11/30/18 04:00 98.8 57 14 101/56 (71) 94 Room Air 11/30/18 03:42 Room Air 11/30/18 01:00 61 11/30/18 00:00 98.7 60 14 114/71 (85) 100 Room Air 11/29/18 23:47 96 Room Air 11/29/18 20:00 97 Room Air 11/29/18 19:14 98.6 68 18 128/69 (88) 97 Room Air 11/29/18 19:00 73 11/29/18 16:22 98.8 73 20 122/73 (89) 100 Room Air 11/29/18 14:45 95 Room Air 11/29/18 12:27 76 11/29/18 12:00 97.2 73 21 129/69 (89) 97 Room Air 11/29/18 10:21 100 Room Air I & O 11/30/18 07:00 Intake Total 1140 ml Output Total 3425 ml Balance -2285 ml Height & Weight Height: 5'2.00" Weight: 166lbs. 11.2oz. 75.541046mk; 29.3 BMI Method:Stated General Appearance: No Apparent Distress, WD/WN, Anxious HEENT: PERRL/EOMI, Pharynx Normal Neck: Normal Inspection, Non Tender, Supple Respiratory: Chest Non Tender, Lungs Clear, Normal Breath Sounds, No Respiratory Distress Cardiovascular: Regular Rate, Rhythm, No Edema, No Murmur Capillary Refill: Less Than 3 Seconds Gastrointestinal: normal bowel sounds, non tender, soft, no organomegaly Extremity: Normal Inspection, Non Tender, No Pedal Edema Neurologic/Psychiatric: Alert; No Disoriented Skin: Normal Color, Warm/Dry Lymphatic: No Adenopathy Results Lab Laboratory Tests 11/29/18 03:00 11/30/18 05:30 Assessment/Plan Assessment/Plan S/P Acute respiratory failure secondary to anaphylactic reaction -Pt is doing well off of vent. -D/C solumedrol Metabolic lactic acidosis secondary to hypotension - improving -Hep lock IVF Leukocytosis secondary to solumedrol VS infection -- Zosyn -- Change to Augmentin (for 5days of total Abx then D/C today is #4/5) -Cultures are negative -MRSA screen is negative Anemia -Monitor RONY JAMES DO Nov 30, 2018 09:02
--- NOTE | 2018-11-30 09:06 | Cardiology Progress Note ---
Subjective Date Seen by Provider: Nov 30, 2018 Time Seen by Provider: 08:50 Subjective/Events-last exam Patient sitting up in bed, no new complaints. Denies any chest pain or dyspnea. Edema much improved. Review of Systems General: No Chills, No Night Sweats, No Fatigue, No Malaise, No Appetite, No Other HEENT: No Head Aches, No Visual Changes, No Eye Pain, No Ear Pain, No Dysphasia, No Sinus Congestion, No Post Nasal Drip, No Sore Throat, No Other Pulmonary: No Dyspnea, No Cough, No Pleuritic Chest Pain, No Other Cardiovascular: No: Chest Pain, Palpitations, Orthopnea, Paroxysmal Noc. Dyspnea, Edema, Lt Headedness, Other Focused Exam Lactate Level 11/27/18 14:40: Lactic Acid Level 3.16*H 11/27/18 23:33: Lactic Acid Level 2.91*H 11/28/18 03:00: Lactic Acid Level 2.56*H Objective-Cardiology Exam Last Set of Vital Signs Vital Signs 11/28/18 11/29/18 08:25 06:45 O2 Flow Rate 2.00 FiO2 100 Capillary Refill : Less Than 3 Seconds I&O Intake and Output 11/30/18 00:00 Intake Total 2240 ml Output Total 5400 ml Balance -3160 ml Intake Oral 760 ml IV Total 1480 ml Output Urine Total 5400 ml General: Alert, Oriented X3, Cooperative, Mild Distress HEENT: Atraumatic Neck: No JVD, No Thyromegaly Lungs: Clear to Auscultation, Normal Air Movement Heart: Regular Rate, Normal S1, Normal S2, No Murmurs Abdomen: Normal Bowel Sounds, Soft, No Hepatosplenomegaly, No Masses Extremities: No Clubbing, No Cyanosis, No Edema, Normal Pulses, No Tenderness/Swelling Skin: No Rashes, No Breakdown, No Significant Lesion Neuro: Normal Speech Psych/Mental Status: Mental Status NL, Mood NL Results Lab Laboratory Tests 11/30/18 05:30 A/P-Cardiology Admission Diagnosis Non-ST elevation of cardiac infarction Coronary artery disease Sinus node dysfunction Chest pain Assessment/Plan Non-ST elevation myocardial infarction, status post cardiac catheterization showing subtotal occlusion of the right coronary artery, successful stenting to the right coronary artery using 4.0 stent in RCA, excellent results, continue to monitor Anaphylactic reaction probably to contrast, patient had hypotensive shock, significant edema, extubated, doing well. Continue to monitor. Will need RX epinephrine pen upon discharge Hypotensive shock, stop lisinopril, will avoid the use of ACEI and ARB do to angioedema, although it is unlikely to be the cause of her reaction, continue to monitor blood pressure Metabolic acidosis, lactic acidosis, better at this time. Electrolytes imbalance, better at this time. Continue to monitor Sinus node dysfunction with episodes of sinus bradycardia, was asymptomatic prior to the procedure. Currently heart rate is better. Continue to monitor Menopause, maintained on hormone replacement therapy. Family history of heart disease Clinical Quality Measures DVT/VTE Risk/Contraindication: Risk Factor Score Per Nursin RFS Level Per Nursing on Admit: 4+=Very High Supervisory-Addendum Brief Supervisory Addendum Participated in pt care: history, MDM, physical Personally performed: exam, history, MDM Care discussed with: MANOHAR Notes: patient was seen and evaluated with Malachi, I examined the patient and visited with her and her daughter, had long discussion about her condition, she is feeling better. Okay for discharge. Arrangement were made, on examination lungs were clear to auscultation bilaterally, heart is regular rate and rhythm. Educated on compliance with medication and I will arrange for follow-up in one to 2 weeks. Agree with the current scribed note from me MALACHI SANABRIA Nov 30, 2018 09:06 KATRIN CARTER MD Nov 30, 2018 10:42
--- NOTE | 2018-11-30 09:48 | Physical Therapy Daily Note ---
PT Daily Note-Current Subjective Patient in bed pre tx, agrees to PT, has no complaints of pain. Appearance Patient sitting EOB post tx with nurse call, phone, tray, family in the room. Mental Status Patient Orientation: Person, Place, Situation Transfers Therapy Code Descriptions/Definitions Functional [place] Measure: 0=Not Assessed/NA 4=Minimal Assistance 1=Total Assistance 5=Supervision or Setup 2=Maximal Assistance 6=Modified [place] 3=Moderate Assistance 7=Complete [place] Therapy Quality Codes: 6 Independent with activity with or without an assistive device 5 Patient requires set up or clean up by helper. Patient completes activity by themselves 4 Supervision or touching assist (CGA). [place] provide cues , steadying assist 3 The helper provides less than half the effort to complete the activity 2 The helper provides more than half the effort to complete the activity 1 Dependent. The helper does all the effort to complete an activity 7 Patient refused to complete or attempt activity 9 The patient did not perform the activity before the current illness or injury 88 Not attempted due to Medical conditions or safety concerns Transfers (B, C, W/C) (FIM): 6 Scootin Rollin Supine to/from Sit: 6 Sit to/from Stand: 6 Bed to/from Chair: 6 Correct use of hands and positioning, no complaints of dizziness or light headedness. Weight Bearing Right Lower Extremity: Right Weight Bearing/Tolerated Left Lower Extremity: Left Weight Bearing/Tolerated Gait Training Gait (FIM): 6 Distance: 300' Gait Level of Assist: 6 Gait Assistive Device: FWW Patient ambulated 300' with a rolling walker with mod I. She ambulated a short distance without an assistive device and was a little unsteady. She needs a rolling walker for ambulation for now and says she has a family member who has one that she can probably use. Exercises Seated Therapy Exercises: Ankle pumps, Long arc quads Seated Reps: 20 Treatments ambulation, bed mobility and transfers, LE exercise Assessment Current Status: Fair Progress improved endurance PT Short Term Goals Short Term Goals Time Frame: Dec 02, 2018 Transfers (B,C,W/C) (FIM): 4 Gait (FIM): 7 Distance (FIM): 3=150 ft Gait Distance Comment: >300' Gait Level of Assist: 7 Gait Assistive Device: None PT Plan Problem List Problem List: Activity Tolerance, Functional Strength, Safety, Balance, Gait, Transfer Treatment/Plan Treatment Plan: Continue Plan of Care Treatment Plan: Bed Mobility, Education, Functional Activity Jyoti, Functional Strength, Gait, Safety, Therapeutic Exercise, Transfers Treatment Duration: Dec 02, 2018 Frequency: 5 times per week Estimated Hrs Per Day: .25 hour per day Patient and/or Family Agrees t: Yes Safety Risks/Education Patient Education: Gait Training, Transfer Techniques, Correct Positioning, Safety Issues Teaching Recipient: Patient Teaching Methods: Demonstration, Discussion Response to Teaching: Reinforcement Needed Time/GCodes Time In: 30 Time Out: 944 Total Billed Treatment Time: 15 Total Billed Treatment 1 visit GT 15' LISBETH PINA PT Nov 30, 2018 09:48
[2018-11-30] MEDS ORDERED: PANT40SU PO (10:44)
[2018-11-30] MEDS ORDERED: CLOP75TA28 PO (10:44)
[2018-11-30] MEDS ORDERED: ATOR40TA PO (10:44)
[2018-11-30] MEDS ORDERED: METO-387 PO (10:44)
[2018-11-30] MEDS ORDERED: ASPI-983 PO (10:44)
--- NOTE | 2018-11-30 10:45 | Discharge Inst-Post CATH ---
Discharge Inst-CATH/EP Problems Reviewed?: Yes Post Cardiac Cath/EP D/C Inst Follow Up/Plan Appointment with Dr. CARTER's office in 2-4 weeks <b>CARDIAC CATH/EP PROCEDURE DISCHARGE INSTRUCTIONS</b> ACTIVITY * Go Home directly and rest. * Limit activity of the leg (or wrist if it was used) for 7 days including aerobics, swimming, jogging, bicycling, etc. * Restrict stair-climbing for 7 days if possible, if not, climb up with your non-cath leg, then bring together on the same step. * Avoid lifting, pushing, pulling or excessive movement of the affected extremity for 7 days. * Customary sexual activity may be resumed after 2 days-use caution not to use a position that strains or causes pain to the affected extremity. * No driving for 24 hours. * NO SMOKING. * Avoid straining for bowel movements for 7 days. * Gentle walking on level ground is allowed. * Returning to work will depend on the type of procedure and the results. Your doctor will discuss this with you. CALL YOUR DOCTOR FOR ANY OF THE FOLLOWING: *If bleeding from the puncture site occurs- Apply gentle pressure to site with clean cloth and call your doctor or EMS. * If a knot or lump forms under the skin, increases in size, or causes pain. * If bruising appears to be worsening or moving further down your leg instead of disappearing. * Temperature above 101 F. CARE OF YOUR GROIN INCISION; * Bruising or purple discoloration of the skin near the puncture site is common. * You may shower only, no bathtub bathing for 5 days. Be careful to avoid slipping as your leg may feel stiff. * If a closure device was used on your femoral artery, please see the attached guide regarding care of the device and your leg. * Leave dressing on FOR 24 hours. CARE OF YOUR WRIST INCISION; * Bruising or purple discoloration of the skin near the puncture site is common. * You may shower. * DO NOT submerge wrist. * Leave dressing on FOR 24 hours. KATRIN CARTER MD Nov 30, 2018 10:45
[2018-11-30] MEDS ORDERED: RT-ALBUTEROL/IPRATROPIUM 3 ML (DUONEB) VIAL INH SCH (11:00)
--- NOTE | 2018-11-30 11:19 | Discharge Inst-Simple/Standard ---
Discharge Inst-Standard Reconcile Patient Problems Problems Reviewed?: Yes Discharge Medications New, Converted or Re-Newed RX: Transmitted to Pharmacy Patient Instructions/Follow Up Plan of Care/Instructions/FU: Take medications as prescribed. Follow up with PCP in about a week. Follow up with cardiology as scheduled. Follow up with pulmonology in 2-3 weeks. geophysical support specialist epi pen at pharmacy. Activity as Tolerated: Yes Discharge Diet: No Restrictions Return to [facility] For: chest pain, shortness of breath, throat and mouth swelling, or if you feel like you are getting worse. JOHN AYERS MD Nov 30, 2018 11:19
[2018-11-30] MEDS ORDERED: AMOX1TAB11 PO (11:23)
[2018-11-30] MEDS ORDERED: EPIN0.3P2 IJ (11:35)
--- NOTE | 2018-11-30 11:42 | Occupational Ther Daily Note ---
OT Current Status-Daily Note Subjective pt sitting in recliner chair upon OT Arrival. pt agreed to OT TX session. pt complains of no pain. Mental Status/Objective Patient Orientation: Person, Place, Time, Situation Therapy Code Descriptions/Definitions Functional [place] Measure: 0=Not Assessed/NA 4=Minimal Assistance 1=Total Assistance 5=Supervision or Setup 2=Maximal Assistance 6=Modified [place] 3=Moderate Assistance 7=Complete [place] ADL-Treatment Eating (FIM): 7 Grooming (FIM): 6 Lower Body Dressing (FIM): 6 Toileting (FIM): 5 Transfers (B, C, W/C) (FIM): 6 Toilet/Commode Transfer (FIM): 6 noted slight decreased in coordination with tasks for FM. pt education on building up handles of small items. pt verbalized understanding and stated "I make improvement everyday, I don't think I'll need those tomorrow" Other Treatment noted slight edema in lesia arms. pt education on ex. to edema in lesia UE. pt demo correctly 5X1 Education OT Patient Education: Correct positioning, Modified ADL techniques, Progress toward Goal/Update tx plan, Purpose of tx/functional activities, Safety issues, Transfer techniques, Use of adapted equipment Teaching Recipient: Patient Teaching Methods: Demonstration, Discussion Response to Teaching: Verbalize Understanding, Return Demonstration OT Short Term Goals Short Term Goals Time Frame: Dec 05, 2018 Eating(FIM): 5 Grooming(FIM): 4 Bathing(FIM): 3 Upper Body Dressing(FIM): 4 Lower Body Dressing(FIM): 3 Toileting(FIM): 3 Transfers (B,C,W/C) (FIM): 4 Toilet/Commode Transfer(FIM): 4 Additional Short Term Goals: 1-Demonstrate ADL Tasks, 2-Verbalize Understanding, 3-ImproveStrength/Jyoti 1=Demonstrate adherence to instructed precautions during ADL tasks. 2=Patient will verbalize/demonstrate understanding of assistive devices/modifications for ADL. 3=Patient will improve strength/tolerance for activity to enable patient to perform ADL's. OT Nursing Home Goals [facility] Manager Goals Time Frame: Dec 12, 2018 Eating (FIM): 6 Grooming(FIM): 6 Bathing(FIM): 5 Upper Body Dressing(FIM): 6 Lower Body Dressing(FIM): 5 Toileting(FIM): 6 Transfers (B,C,W/C) (FIM): 6 Toilet/Commode Transfer(FIM): 6 Shower Transfer(FIM): 5 Additional Goals: 1-Demonstrate ADL Tasks, 2-Verbalize Understanding, 3- ImproveStrength/Jyoti 1=Demonstrate adherence to instructed precautions during ADL tasks. 2=Patient will verbalize/demonstrate understanding of assistive d evices/modifications for ADL. 3=Patient will improve strength/tolerance for activity to enable patient to perform ADL's. OT Education/Plan Problem List/Assessment Assessment: Decreased Activ Tolerance, Impaired Coordination, Impaired Funct Balance Discharge Recommendations Plan/Recommendations: Continue POC Therapy D/C Recommendations: Home w/ Family Support Treatment Plan/Plan of Care Treatment,Training & Education: Yes Patient would benefit from OT for education, treatment and training to promote independence in ADL's, mobility, safety and/or upper extremity function for ADL's. Plan of Care: ADL Retraining, Functional Mobility, Group Exercise/Act as Ind, UE Funct Exercise/Act Treatment Duration: Dec 12, 2018 Frequency: 5 times per week Estimated Hrs Per Day: .5 hour per day Agreement: Yes Rehab Potential: Good Time/GCodes Start Time: 11:20 Stop Time: 11:35 Billed Treatment Time ADL 15 minutes, 1 unit SARAH JIMENEZ OT Nov 30, 2018 11:42
--- NOTE | 2018-11-30 11:45 | Discharge Summary ---
Diagnosis/Chief Complaint Date of Admission Nov 25, 2018 at 21:25 Date of Discharge Discharge Date: Nov 30, 2018 Discharge Time: 12:00 Admission Diagnosis NSTEMI Discharge Diagnosis NSTEMI Anaphylactic shock Contrast allergy (1) NSTEMI (non-ST elevated myocardial infarction) Status: Acute (2) Anaphylactic shock as adv eff correct medicin substanc proper administ Status: Resolved (3) Leukocytosis Status: Resolved (4) Lactic acidosis Status: Resolved Discharge Summary Discharge Physical Exam Allergies: Coded Allergies: shellfish derived (Unverified Allergy, Severe, Anaphylaxis, 11/26/18) sulfamethoxazole (Verified Allergy, Unknown, 11/25/18) trimethoprim (Verified Allergy, Unknown, 11/25/18) Uncoded Allergies: iv contrast (Allergy, Severe, anaphylaxis, 11/26/18) anaphylaxis, angioedema Vitals & I&Os Vital Signs Date Time Temp Pulse Resp B/P (MAP) Pulse Ox O2 Delivery O2 Flow Rate FiO2 11/30/18 08:00 97.7 62 20 121/76 (91) 95 Room Air 11/29/18 06:45 100 11/28/18 08:25 2.00 General Appearance: No Apparent Distress; No Anxious HEENT: PERRL/EOMI, Pharynx Normal Respiratory: Lungs Clear, Normal Breath Sounds, No Respiratory Distress Cardiovascular: Regular Rate, Rhythm, No Edema, No Murmur Gastrointestinal: Normal Bowel Sounds, Non Tender, Soft Extremity: Normal Inspection, Non Tender, No Pedal Edema Skin: Normal Color, Warm/Dry Neurologic/Psychiatric: Alert; No Disoriented Hospital Course Radha Card is a 53yoF who presented with chest pain and was admitted with NSTEMI. She was taken for left heart catheterization and was found to have an RCA lesion which was stented. Her distal LAD was completely occluded with collaterals and intervention was not performed. Following her heart cath, she developed anaphylaxis and was intubated and transferred to the ICU in anaphylactic shock due to newly diagnosed contrast allergy. She responded well to steroids and antihistamine therapy and was subsequently extubated without issue. She did have some insomnia and anxiety thought to be secondary to high- dose steroids. She was discharged on ASA, Plavix, Lipitor, and Metoprolol for her CAD. She was not started on an BRADLY inhibitor due to her anaphylactic reaction to contrast. She was started on Pantoprazole for GERD. She was given Zosyn while inpatient for possible pneumonia and was transitioned to Augmentin on discharge to complete a 5 day course. She was given a prescription for an epi pen on discharge. She will have follow up with both cardiology and pulmonology. She was also encouraged to establish with a primary care physician. Labs (last 24 hrs) Laboratory Tests 11/29/18 16:26: Glucometer 77 11/29/18 20:48: Glucometer 82 11/30/18 05:30: White Blood Count 9.5, Red Blood Count 3.84L, Hemoglobin 10.6L, Hematocrit 33L, Mean Corpuscular Volume 85, Mean Corpuscular Hemoglobin 28, Mean Corpuscular Hemoglobin Concent 32, Red Cell Distribution Width 14.3, Platelet Count 170, Mean Platelet Volume 10.4, Neutrophils (%) (Auto) 76H, Lymphocytes (%) (Auto) 17, Monocytes (%) (Auto) 6, Eosinophils (%) (Auto) 1, Basophils (%) (Auto) 0, Neutrophils # (Auto) 7.2, Lymphocytes # (Auto) 1.6, Monocytes # (Auto) 0.6, Eosinophils # (Auto) 0.1, Basophils # (Auto) 0.0 11/30/18 05:33: Glucometer 82 11/30/18 11:01: Glucometer 83 Microbiology 11/27/18 Blood Culture - Preliminary, Resulted No growth 11/27/18 MRSA Screen - Final, Complete MRSA not isolated Patient resulted labs reviewed. Pending Labs Laboratory Tests 11/30/18 05:30: White Blood Count 9.5, Red Blood Count 3.84, Hemoglobin 10.6, Hematocrit 33, Mean Corpuscular Volume 85, Mean Corpuscular Hemoglobin 28, Mean Corpuscular Hem oglobin Concent 32, Red Cell Distribution Width 14.3, Platelet Count 170, Mean Platelet Volume 10.4, Neutrophils (%) (Auto) 76, Lymphocytes (%) (Auto) 17, Monocytes (%) (Auto) 6, Eosinophils (%) (Auto) 1, Basophils (%) (Auto) 0, Neutrophils # (Auto) 7.2, Lymphocytes # (Auto) 1.6, Monocytes # (Auto) 0.6, Eosinophils # (Auto) 0.1, Basophils # (Auto) 0.0 11/30/18 05:33: Glucometer 82 11/30/18 11:01: Glucometer 83 Imaging: Reviewed Imaging Films, Reviewed Imaging Report Discussion & Recommendations Discharge Planning: <30 minutes discharge planning Discharge Home Medications: Active Scripts Active Epipen (Epinephrine) 0.3 Mg/0.3 Ml Auto.injct 0.3 Mg IJ PRN 1 Days Amox Tr-K Clv 500-125 mg Tab (Amoxicillin/Potassium Clav) 1 Each Tablet 500 Mg PO BID WITH MEALS 2 Days Protonix (Pantoprazole Sodium) 40 Mg Granpkt.dr 40 Mg PO DAILY Aspirin EC (Aspirin) 81 Mg Tablet.dr 81 Mg PO DAILY Lipitor (Atorvastatin Calcium) 40 Mg Tablet 40 Mg PO HS Metoprolol Succinate 25 Mg Tab.er.24h 25 Mg PO DAILY Clopidogrel (Clopidogrel Bisulfate) 75 Mg Tablet 75 Mg PO DAILY Reported Medroxyprogesterone Acetate 2.5 Mg Tablet 2.5 Mg PO MOWEFR TAKES AT BEDTIME Estradiol Tablet (Estradiol) 1 Mg Tablet 1 Mg PO MOWEFR TAKES AT BEDTIME Condition at discharge Stable Instructions to patient/family Please see electronic discharge instructions given to patient. Clinical Quality Measures DVT/VTE Risk/Contraindication: Risk Factor Score Per Nursin RFS Level Per Nursing on Admit: 4+=Very High Problem Qualifiers (1) Anaphylactic shock as adv eff correct medicin substanc proper administ: Encounter type: initial encounter Qualified Codes: T88.6XXA - Anaphylactic reaction due to adverse effect of correct drug or medicament properly administered, initial encounter (2) Leukocytosis: Leukocytosis type: leukemoid reaction Qualified Codes: D72.823 - Leukemoid reaction JOHN AYERS MD Nov 30, 2018 11:45
--- NOTE | 2018-11-30 12:16 | NUR ---
CM/SS patient discharging this day. PT recommended a FWW at this time for patient, she stated that she has one she can use. Patient did not believe she had any other discharge needs.
--- NOTE | 2018-11-30 12:31 | NUR ---
patient discharged with family and staff assistance. paperwork signed, follow up appointments made and given to patient
[2018-11-30 12:39] VITALS: BP 121/76
[2018-11-30] MEDS ORDERED: AUGMENTIN 500 MG TAB (AMOXICILLIN/CLAVULANATE) PO SCH (17:00)
== END 2018-11-30 12:31 | disposition home or self-care (01) | DRG 246 ==
LOC: EDUNIT# 20:38 → ER 20:39 → ICU 21:25 → 4TH 11-29 12:27
PROVIDERS: ADMIT Family Medicine; ATTEND Internal Medicine
PROC: 027034Z Dilation of Coronary Artery, One Artery with Drug-eluting Intraluminal Device, Percutaneous Approach (ICD-10-PCS; principal; 2018-11-26)
PROC: B2151ZZ Fluoroscopy of Left Heart using Low Osmolar Contrast (ICD-10-PCS; principal; 2018-11-26)
PROC: 4A023N7 Measurement of Cardiac Sampling and Pressure, Left Heart, Percutaneous Approach (ICD-10-PCS; principal; 2018-11-26)
PROC: B2111ZZ Fluoroscopy of Multiple Coronary Arteries using Low Osmolar Contrast (ICD-10-PCS; principal; 2018-11-26)
PROC: 5A1945Z Respiratory Ventilation, 24-96 Consecutive Hours (ICD-10-PCS; 2018-11-26)
PROC: 0BH17EZ Insertion of Endotracheal Airway into Trachea, Via Natural or Artificial Opening (ICD-10-PCS; 2018-11-26)
DX: I21.4 Non-ST elevation (NSTEMI) myocardial infarction (principal); T88.6XXA Anaphylactic reaction due to adverse effect of correct drug or medicament properly administered, initial encounter; T50.8X5A Adverse effect of diagnostic agents, initial encounter; J96.00 Acute respiratory failure, unspecified whether with hypoxia or hypercapnia; E87.2 Acidosis; E87.1 Hypo-osmolality and hyponatremia; I25.110 Atherosclerotic heart disease of native coronary artery with unstable angina pectoris; I49.5 Sick sinus syndrome; R00.1 Bradycardia, unspecified; E87.6 Hypokalemia; F41.9 Anxiety disorder, unspecified; E78.5 Hyperlipidemia, unspecified; D64.9 Anemia, unspecified; K21.9 Gastro-esophageal reflux disease without esophagitis; E83.39 Other disorders of phosphorus metabolism; E83.51 Hypocalcemia; Z79.890 Hormone replacement therapy; Z91.013 Allergy to seafood; Z78.0 Asymptomatic menopausal state; Z82.49 Family history of ischemic heart disease and other diseases of the circulatory system
CPT/HCPCS: 36415; 36600; 71045; 80048; 80053; 80061; 80076; 81000; 82805; 82962; 83605; 83690; 83735; 83874; 84100; 84439; 84443; 84481; 84484; 85007; 85025; 85027; 85347; 85610; 85730; 87040; 87070; 87081; 87205; 93005; 93041; 93306; 93458; 94002; 94003; 94640; 94760; 94799; 96372

== ENCOUNTER 2019-01-06 22:38 | Observation (INO) | payer BC | END 2019-01-07 12:20 | disposition home or self-care (01) | LOC: ICU 01-07 00:25 → ER 22:38 ==

== ENCOUNTER → 2019-03-17 | Outpatient (CLI) | payer BC ==
[~2019-03-17] MED LIST changes: +AMOX1TAB11 PO; +ASPI-983 PO; +ATOR40TA PO; +CLOP75TA28 PO; +EPIN0.3P2 IJ; +ESTR1TAB24 PO; +MEDR2.5T6 PO; +METO-387 PO; -NITROGLYCERIN 0.4 MG SL TABS BTL 25'S SL ONE; +PANT40SU PO
[2019-03-17 12:26] LABS: ALBUMIN 4.5 GM/DL (3.2-4.5); BILIRUBIN,TOTAL 0.6 MG/DL (0.1-1.0); CALCIUM 9.8 MG/DL (8.5-10.1); CREATININE SERUM 0.96 MG/DL (0.60-1.30); POTASSIUM 3.9 MMOL/L (3.6-5.0); TOTAL PROTEIN 6.7 GM/DL (6.4-8.2)
== END ==
LOC: LAB 12:01
PROVIDERS: ATTEND Internal Medicine Cardiovascular Disease
DX: I25.10 Atherosclerotic heart disease of native coronary artery without angina pectoris (principal); I21.4 Non-ST elevation (NSTEMI) myocardial infarction; E78.2 Mixed hyperlipidemia; I10 Essential (primary) hypertension
CPT/HCPCS: 36415; 80053; 80061

== ENCOUNTER 2019-03-20 10:44 | Outpatient (RCR) | payer BC | END 2019-03-21 | disposition home or self-care (01) | LOC: CR 10:44 | PROVIDERS: ATTEND Internal Medicine Cardiovascular Disease | DX: Z48.812 Encounter for surgical aftercare following surgery on the circulatory system (principal); I25.2 Old myocardial infarction; Z95.5 Presence of coronary angioplasty implant and graft | CPT/HCPCS: 93798 ==

== ENCOUNTER → 2019-03-27 | Outpatient (CLI) | payer BC | LOC: RAD 10:57 | PROVIDERS: ATTEND Obstetrics & Gynecology | DX: Z12.31 Encounter for screening mammogram for malignant neoplasm of breast (principal) | CPT/HCPCS: 77067 ==

== ENCOUNTER 2019-03-31 10:52 | Outpatient (RCR) | payer BC | END 2019-04-26 | disposition home or self-care (01) | LOC: CR3 10:52 | PROVIDERS: ATTEND Internal Medicine Cardiovascular Disease | DX: Z29.8 Encounter for other specified prophylactic measures (principal) ==

== ENCOUNTER → 2019-04-24 | Outpatient (CLI) | payer BC ==
--- NOTE | 2019-04-24 10:38 | Diagnostic Imaging Report ---
INDICATION: Right breast nodule. Study is performed for further evaluation. Correlation is made with recent screening mammogram from 03/27/2019. Sonographic interrogation of the upper outer right breast retroareolar region was performed. There is a simple cyst 9:30 location, 2 cm from the nipple measuring 6 mm x 4 mm x 4 mm. This corresponds in size and location to the mammographic density. No internal vascularity is seen. No other masses are detected. IMPRESSION: BI-RADS Category 2 Simple cysts 9:30 location right breast, 2 cm from the nipple. This correlates to the mammographic density. Patient may return to routine annual screening mammography. ACR BI-RADS Category 2: Benign findings. Result letter will be mailed to the patient. Note: At least 10% of breast cancer is not imaged by mammography. Dictated by: Dictated on workstation # [id number]
== END ==
LOC: RAD 08:42
PROVIDERS: ATTEND Obstetrics & Gynecology
DX: N60.01 Solitary cyst of right breast (principal); N63.10 Unspecified lump in the right breast, unspecified quadrant

== ENCOUNTER → 2020-01-05 | Outpatient (CLI) | payer BC ==
[~2020-01-05] MED LIST changes: +ASPI-1238 PO; -ASPI-983 PO; -METO-387 PO; +MTP25TSR PO
[2020-01-05 14:36] LABS: ALBUMIN 4.3 GM/DL (3.2-4.5)
[2020-01-05 14:39] LABS: TOTAL PROTEIN 6.8 GM/DL (6.4-8.2)
[2020-01-05 14:41] LABS: BILIRUBIN,TOTAL 0.6 MG/DL (0.1-1.0)
[2020-01-05 14:44] LABS: BILIRUBIN,DIRECT 0.3 MG/DL (0.0-0.3); BILIRUBIN,INDIRECT 0.3 MG/DL
== END ==
LOC: LAB 14:04
PROVIDERS: ATTEND Internal Medicine Cardiovascular Disease
DX: E78.2 Mixed hyperlipidemia (principal); I10 Essential (primary) hypertension; I25.10 Atherosclerotic heart disease of native coronary artery without angina pectoris
CPT/HCPCS: 36415; 80061; 80076

== ENCOUNTER → 2020-06-29 | Outpatient (CLI) | payer BC ==
[2020-06-29 09:22] LABS: BASOPHILS % (AUTO) 1 % (0-10); EOSINOPHILS # (AUTO) 0.1 10^3/uL (0.0-0.3); EOSINOPHILS % (AUTO) 3 % (0-10); HEMATOCRIT 42 % (35-52); HEMOGLOBIN 13.7 g/dL (11.5-16.0); LYMPHOCYTES # (AUTO) 1.6 10^3/uL (1.0-4.0); LYMPHOCYTES % (AUTO) 33 % (12-44); MEAN CORPUSCULAR HEMOGLOBIN 29 pg (25-34); MEAN CORPUSCULAR HGB CONC 33 g/dL (32-36); MEAN CORPUSCULAR VOLUME 87 fL (80-99); MEAN PLATELET VOLUME 10.2 fL (9.0-12.2); MONOCYTES # (AUTO) 0.4 10^3/uL (0.0-1.0); MONOCYTES % (AUTO) 7 % (0-12); NEUTROPHILS # (AUTO) 2.8 10^3/uL (1.8-7.8); NEUTROPHILS % (AUTO) 57 % (42-75); PLATELET COUNT 205 10^3/uL (130-400); WHITE BLOOD COUNT 4.9 10^3/uL (4.3-11.0)
[2020-06-29 09:41] LABS: ALANINE AMINOTRANSFERASE 19 U/L (0-55); ALKALINE PHOSPHATASE 66 U/L (40-136); BILIRUBIN,TOTAL 0.4 MG/DL (0.1-1.0); BUN/CREATININE RATIO 18; CALCIUM 8.9 MG/DL (8.5-10.1); CARBON DIOXIDE 25 MMOL/L (21-32); CHLORIDE 106 MMOL/L (98-107); CHOLESTEROL 145 MG/DL (< 200); CREATININE SERUM 0.85 MG/DL (0.60-1.30); GFR ESTIMATED > 60; GLUCOSE 87 MG/DL (70-105); HDL CHOLESTEROL 79 MG/DL (40-60); POTASSIUM 4.1 MMOL/L (3.6-5.0); SODIUM 140 MMOL/L (135-145); TOTAL PROTEIN 6.2 GM/DL (6.4-8.2); TRIGLYCERIDES 31 MG/DL (<150); VLDL CHOLESTEROL 6 MG/DL (5-40)
== END ==
LOC: LAB 09:10
PROVIDERS: ATTEND Family Medicine
DX: Z00.00 Encounter for general adult medical examination without abnormal findings (principal); E78.5 Hyperlipidemia, unspecified; I25.10 Atherosclerotic heart disease of native coronary artery without angina pectoris
CPT/HCPCS: 36415; 80053; 80061; 84443; 85025

== ENCOUNTER → 2021-02-03 | Outpatient (CLI) | payer BC ==
--- NOTE | 2021-02-03 13:07 | Diagnostic Imaging Report ---
INDICATION: Routine screening. Comparison is made with prior mammogram 03/27/2019 and 03/21/2018. 2-D and 3-D bilateral screening mammography was performed with CAD. Scattered fibroglandular densities are identified bilaterally. The parenchymal pattern is stable. No mass or malignant-appearing microcalcifications are seen. Axillae are unremarkable. IMPRESSION: BI-RADS Category 1 No mammographic features suspicious for malignancy are identified. ACR BI-RADS Category 1: Negative. Result letter will be mailed to the patient. Note: At least 10% of breast cancer is not imaged by mammography. Dictated by: Dictated on workstation # [id number]
== END ==
LOC: RAD 10:28
PROVIDERS: ATTEND Obstetrics & Gynecology
DX: Z12.31 Encounter for screening mammogram for malignant neoplasm of breast (principal)
CPT/HCPCS: 77063; 77067

== ENCOUNTER → 2021-02-03 | Outpatient (CLI) | payer BC | LOC: CARD 10:22 | PROVIDERS: ATTEND Physician Assistant | DX: I08.0 Rheumatic disorders of both mitral and aortic valves (principal); I10 Essential (primary) hypertension | CPT/HCPCS: 93306 ==

== ENCOUNTER → 2021-07-05 | Outpatient (CLI) | payer BC ==
[2021-07-05 08:05] LABS: BASOPHILS % (AUTO) 1 % (0-10); EOSINOPHILS # (AUTO) 0.2 10^3/uL (0.0-0.3); EOSINOPHILS % (AUTO) 4 % (0-10); HEMATOCRIT 42 % (35-52); HEMOGLOBIN 13.7 g/dL (11.5-16.0); LYMPHOCYTES # (AUTO) 1.3 10^3/uL (1.0-4.0); LYMPHOCYTES % (AUTO) 30 % (12-44); MEAN CORPUSCULAR HEMOGLOBIN 29 pg (25-34); MEAN CORPUSCULAR HGB CONC 33 g/dL (32-36); MEAN CORPUSCULAR VOLUME 88 fL (80-99); MEAN PLATELET VOLUME 10.2 fL (9.0-12.2); MONOCYTES # (AUTO) 0.4 10^3/uL (0.0-1.0); MONOCYTES % (AUTO) 9 % (0-12); NEUTROPHILS # (AUTO) 2.5 10^3/uL (1.8-7.8); NEUTROPHILS % (AUTO) 57 % (42-75); PLATELET COUNT 211 10^3/uL (130-400); WHITE BLOOD COUNT 4.4 10^3/uL (4.3-11.0)
[2021-07-05 08:24] LABS: BILIRUBIN,TOTAL 0.6 MG/DL (0.1-1.0); CALCIUM 9.7 MG/DL (8.5-10.1); CREATININE SERUM 0.83 MG/DL (0.60-1.30); POTASSIUM 4.2 MMOL/L (3.6-5.0); TOTAL PROTEIN 6.4 GM/DL (6.4-8.2)
[2021-07-05 08:45] LABS: FREE T4 (FREE THYROXINE) 0.8 NG/DL (0.70-1.48)
== END ==
LOC: LAB 07:32
PROVIDERS: ATTEND Family Medicine
DX: Z00.00 Encounter for general adult medical examination without abnormal findings (principal); E78.2 Mixed hyperlipidemia; I25.10 Atherosclerotic heart disease of native coronary artery without angina pectoris
CPT/HCPCS: 36415; 80053; 80061; 84439; 84443; 85025

== ENCOUNTER → 2022-07-11 | Outpatient (CLI) | payer BC ==
[2022-07-11 09:12] LABS: BASOPHILS % (AUTO) 1 % (0-10); EOSINOPHILS # (AUTO) 0.2 10^3/uL (0.0-0.3); EOSINOPHILS % (AUTO) 3 % (0-10); HEMATOCRIT 43 % (35-52); HEMOGLOBIN 14.2 g/dL (11.5-16.0); LYMPHOCYTES # (AUTO) 1.5 10^3/uL (1.0-4.0); LYMPHOCYTES % (AUTO) 30 % (12-44); MEAN CORPUSCULAR HEMOGLOBIN 29 pg (25-34); MEAN CORPUSCULAR HGB CONC 33 g/dL (32-36); MEAN CORPUSCULAR VOLUME 85 fL (80-99); MEAN PLATELET VOLUME 9.9 fL (9.0-12.2); MONOCYTES # (AUTO) 0.4 10^3/uL (0.0-1.0); MONOCYTES % (AUTO) 8 % (0-12); NEUTROPHILS # (AUTO) 2.9 10^3/uL (1.8-7.8); NEUTROPHILS % (AUTO) 58 % (42-75); PLATELET COUNT 249 10^3/uL (130-400)
[2022-07-11 09:47] LABS: ALBUMIN 4.1 GM/DL (3.2-4.5); BILIRUBIN,TOTAL 0.5 MG/DL (0.1-1.0); CALCIUM 9.8 MG/DL (8.5-10.1); CREATININE SERUM 0.91 MG/DL (0.60-1.30); TOTAL PROTEIN 6.8 GM/DL (6.4-8.2)
[2022-07-11 10:08] LABS: FREE T4 (FREE THYROXINE) 0.98 NG/DL (0.70-1.48)
== END ==
LOC: LAB 08:50
PROVIDERS: ATTEND Family Medicine
DX: Z00.00 Encounter for general adult medical examination without abnormal findings (principal); E78.2 Mixed hyperlipidemia; I25.10 Atherosclerotic heart disease of native coronary artery without angina pectoris
CPT/HCPCS: 36415; 80053; 80061; 84439; 84443; 85025

== ENCOUNTER → 2022-07-14 | Outpatient (CLI) | payer BC ==
--- NOTE | 2022-07-14 15:31 | Diagnostic Imaging Report ---
EXAMINATION: 3D bilateral screening mammogram with CAD. INDICATION: Screening. COMPARISON: This study was compared to the prior exams of 02/03/2021 and 03/27/2019. PERSONAL HISTORY: At this time, there are no current complaints. FINDINGS: There are scattered fibroglandular densities in both breasts which could obscure a lesion. No primary or secondary sign of malignancy is noted. IMPRESSION: There is no radiographic evidence for malignancy. ACR BI-RADS Category 1: Negative. Result letter will be mailed to the patient. Note: At least 10% of breast cancer is not imaged by mammography. Dictated by: Dictated on workstation # [id number]
== END ==
LOC: RAD 14:29
PROVIDERS: ATTEND Family Medicine
DX: Z12.31 Encounter for screening mammogram for malignant neoplasm of breast (principal)
CPT/HCPCS: 77063; 77067